=== PATIENT | male | born 1930 | race Caucasian/White ===

== ENCOUNTER 2016-10-26 03:07 | Inpatient (IN) | payer MEDICARE, OTHER ==
--- NOTE | 2016-10-26 03:18 | PDOC ---
History of Present Illness - General Stated Complaint: DIZZINESS, SOB Time Seen by Provider: 10/26/16 03:17 History Source: Patient Exam Limitations: No Limitations - History of Present Illness Timing/Duration: reports: other (4 months) Possible Cause: Yes: no prior episodes Past History - Travel Traveled outside of the country in the last 30 days: No Close contact w/someone who was outside of country & ill: No - Past Medical History Allergies/Adverse Reactions: Allergies Allergy/AdvReac Type Severity Reaction Status Date / Time No Known Allergies Allergy Verified 10/26/16 03:18 Home Medications: Ambulatory Orders Apixaban [Eliquis -] 5 mg PO BID #40 tablet 05/22/16 Atorvastatin Ca [Lipitor] 40 mg PO HS #30 tablet 05/22/16 Albuterol 0.083% Nebulizer Hamida [Ventolin 0.083%] 1 neb NEB QID 10/26/16 Albuterol Sulfate [Proair Respiclick] 90 mcg IH ASDIR 10/26/16 Brimonidine Tartrate/Timolol [Combigan Eye Drops] 5 ml OP ASDIR 10/26/16 Montelukast Na [Singulair -] 10 mg PO HS 10/26/16 Pantoprazole Sodium [Protonix -] 40 mg PO DAILY 10/26/16 GI Disorders: Yes (gerd) Suicide Attempt (Hx): No - Psycho/Social/Smoking Cessation Hx Anxiety: No Suicidal Ideation: No Smoking History: Unknown if ever smoked Have you smoked in the past 12 months: No Hx Alcohol Use: No Drug/Substance Use Hx: No Substance Use Type: None Respiratory Specific PMHX - Complaint Specific PMHX Bronchitis: No Pneumonia: No Review of Systems - Review of Systems Able to Perform ROS?: Yes Comments:: 10/26/16 04:38 CONSTITUTIONAL: subjective; fever Absent: chills, diaphoresis, generalized weakness, malaise, loss of appetite HEENT: Absent: rhinorrhea, nasal congestion, throat pain, throat swelling, difficulty swallowing, mouth swelling, ear pain, eye pain, visual Changes CARDIOVASCULAR: Absent: chest pain, loss of consciousness, palpitations, irregular heart rate, peripheral edema RESPIRATORY: +cough Absent: shortness of breath, dyspnea with exertion, orthopnea, wheezing, stridor , hemoptysis GASTROINTESTINAL: Absent: abdominal pain, abdominal distension, nausea, vomiting, diarrhea, constipation, melena, hematochezia GENITOURINARY: Absent: dysuria, frequency, urgency, hesitancy, hematuria, flank pain, genital pain MUSCULOSKELETAL: Absent: myalgia, arthralgia, joint swelling SKIN: Absent: rash, itching, pallor HEMATOLOGIC/IMMUNOLOGIC: Absent: easy bleeding, easy bruising, lymphadenopathy, frequent infections ENDOCRINE: Absent: unexplained weight gain, unexplained weight loss, heat intolerance, cold intolerance NEUROLOGIC: Absent: headache, focal weakness or paresthesias, dizziness, unsteady gait, seizure, mental status changes, bladder or bowel incontinence PSYCHIATRIC: Absent: anxiety, depression, suicidal or homicidal ideation, hallucinations. Is the patient limited Beninese proficient: No *Physical Exam - Physical Exam Comments: 10/26/16 04:38 GENERAL: Well developed, well nourished. Awake and alert. No acute distress. HEENT: Normocephalic, atraumatic. PERRLA, EOMI. No conjunctival pallor. Sclera are non- icteric. Moist mucous membranes. Oropharynx is clear. NECK: Supple. Full ROM. No JVD. Carotid pulses 2+ and symmetric, without bruits. No thyromegaly. No lymphadenopathy. CARDIOVASCULAR: Regular rate and rhythm. No murmurs, rubs, or gallops. Distal pulses are 2+ and symmetric. PULMONARY: RLL>LLL basil rhonchi No evidence of respiratory distress. No wheezing, rales ABDOMINAL: Soft. Non-tender. Non-distended. No rebound or guarding. No organomegaly. Normoactive bowel sounds. MUSCULOSKELETAL Normal range of motion at all joints. No bony deformities or tenderness. No CVA tenderness. EXTREMITIES: No cyanosis. No clubbing. No edema. No calf tenderness. SKIN: Warm and dry. Normal capillary refill. No rashes. No jaundice. NEUROLOGICAL: Alert, awake, appropriate. Cranial nerves 2-12 intact. No deficits to light touch and temperature in face, upper extremities and lower extremities. No motor deficits in the in face, upper extremities and lower extremities. Normoreflexic in the upper and lower extremities. Normal speech. Toes are down- going bilaterally. Gait is normal without ataxia. PSYCHIATRIC: Cooperative. Good eye contact. Appropriate mood and affect. 10/26/16 05:21 ED Treatment Course - LABORATORY CBC & Chemistry Diagram: 10/26/16 03:30 10/26/16 03:30 - RADIOLOGY Radiograph Interpretation: 10/26/16 05:08 Mild nonspecific bilateral basilar pneumonia or chronic atypical pneumonia and lung scarring Progress Note - Progress Note Progress Note: 86-year-old male presents to the emergency department with his family complaining of subjective fever and cough 4 months. Patient states he feels shortness of breath after persisting coughing. Patient denies any dizziness, lightheadedness, headaches, nausea, vomiting, chest pain, abdominal pains, urinary symptoms or extremity numbness or tingling sensation. 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
--- NOTE | 2016-10-26 03:37 | PDOC ---
*Physical Exam - Vital Signs Last Vital Signs Temp Pulse Resp BP Pulse Ox 101 F H 107 H 28 H 130/70 10/26/16 03:20 10/26/16 03:20 10/26/16 03:20 10/26/16 03:20 ED Treatment Course - LABORATORY CBC & Chemistry Diagram: 10/26/16 03:30 10/26/16 03:30 Medical Decision Making - Medical Decision Making 10/26/16 03:36 agree with care from SAM Moya. Pt h/o fever for several weeks. Pt pending cxray and flu swab *DC/Admit/Observation/Transfer Diagnosis at time of Disposition: Pneumonia - Discharge Dispostion Condition at time of disposition: Stable
[2016-10-26] MEDS ORDERED: ACETAMINOPHEN 325 MG TABLET (FP) ONE (03:52)
[2016-10-26 04:15] LABS: BASOPHIL 0.3 % (0-2.0); MCH 29.8 pg (25.7-33.7); MCHC 33.6 g/dl (32.0-35.9); MEAN CELL VOLUME 88.6 fl (80-96); NEUTROPHILS 72.6 % (42.8-82.8); PLATELET COUNT 238 K/MM3 (134-434); RDW 14.3 % (11.9-15.9); WHITE BLOOD COUNT 14.3 K/mm3 (4.0-10.0)
[2016-10-26 04:30] LABS: URINE APPEARANCE CLEAR; URINE BILIRUBIN NEGATIVE (NEGATIVE); URINE BLOOD NEGATIVE (NEGATIVE); URINE COLOR LTYELLOW; URINE GLUCOSE (UA) NEGATIVE (NEGATIVE); URINE KETONE NEGATIVE (NEGATIVE); URINE LEUK ESTERASE NEGATIVE (NEGATIVE); URINE NITRITE NEGATIVE (NEGATIVE); URINE UROBILINOGEN NEGATIVE E.U./dl (0.2-1.0)
[2016-10-26 04:34] LABS: URINE PROTEIN 1+ (NEGATIVE)
[2016-10-26 04:35] LABS: URINE BACTERIA RARE /hpf (NONE SEEN); URINE RBC <1 /hpf (0-3); URINE WBC <1 /hpf (3-5)
[2016-10-26 04:41] LABS: ALBUMIN 3.3 g/dl (3.4-5.0); ANION GAP 10 (8-16); CALCIUM 8.8 mg/dL (8.5-10.1); CO2 28 mmol/L (21-32); CREATININE 0.9 mg/dL (0.7-1.3); GLUCOSE,RANDOM 150 mg/dL (74-106); SGOT/AST 20 U/L (15-37); SGPT/ALT 34 U/L (12-78); TOT PROT 6.8 g/dl (6.4-8.2)
[2016-10-26 04:42] LABS: ALK PHOS 159 U/L (45-117)
[2016-10-26 04:44] LABS: TROPONIN I 0.02 ng/ml (0.00-0.05)
[2016-10-26] MEDS ORDERED: CEFTRIAXONE 1 GM in DEXTROSE 5%-WATER - 50 ML IVPB ONE (04:53)
[2016-10-26] MEDS ORDERED: AZITHROMYCIN IVPB 500 MG in DEXTROSE 5%-WATER - 250 ML IVPB ONE (04:53)
[2016-10-26] MEDS ORDERED: ACETAMINOPHEN 325 MG TABLET (FP) PO PRN (05:25)
--- NOTE | 2016-10-26 05:32 | HP ---
CHIEF COMPLAINT: Cough, SOB, Dizziness PCP: Dr. Malena Collins HISTORY OF PRESENT ILLNESS: This is a 86 y/o male with a past medical history of Afib (on Eliquis), Hypertension. Who presents to the emergency department with family for cough, SOB x 4 months, subjective fever, dizziness, chest pain. Patient's Son reports patient has had a productive cough with white phlegm, seeing his PMD Rx- Albuterol Neb, Pro Air without relief. His son reports the cough is worse at night. The son reports the patient being dizzy and having chest pain worse after coughing. Per the patient's son patient denies AP, N/V/D, constipation, dysuria ER course was notable for: (1) Sepsis Criteria Met IV: T Max 101, P 104, R 28, WBC 48942 (2) SIRS Criteria Met secondary to CAP (3) Chest Xray- Bibasilar PNA- started on Azithromycin, Ceftriaxone Recent Travel: None PAST MEDICAL HISTORY: See HPI PAST SURGICAL HISTORY: None Social History: Smoking: Never Alcohol: None Drugs: None Lives with family Family History: Non-Contributory Allergies No Known Allergies Allergy (Verified 10/26/16 03:18) HOME MEDICATIONS: Home Medications Medication Instructions Recorded Apixaban [Eliquis -] 5 mg PO BID #40 tablet 05/22/16 Atorvastatin Ca [Lipitor] 40 mg PO HS #30 tablet 05/22/16 Albuterol 0.083% Nebulizer Hamida 1 neb NEB QID 10/26/16 [Ventolin 0.083%] Albuterol Sulfate [Proair 90 mcg IH ASDIR 10/26/16 Respiclick] Brimonidine Tartrate/Timolol 5 ml OP ASDIR 10/26/16 [Combigan Eye Drops] Montelukast Na [Singulair -] 10 mg PO HS 10/26/16 Pantoprazole Sodium [Protonix -] 40 mg PO DAILY 10/26/16 REVIEW OF SYSTEMS CONSTITUTIONAL: fever, chills Absent: diaphoresis, generalized weakness, malaise, loss of appetite, weight change HEENT: Absent: rhinorrhea, nasal congestion, throat pain, throat swelling, difficulty swallowing, mouth swelling, ear pain, eye pain, visual changes CARDIOVASCULAR: chest pain, Absent: syncope, palpitations, irregular heart rate, lightheadedness, peripheral edema RESPIRATORY: cough, shortness of breath, dyspnea with exertion Absent: orthopnea, wheezing, stridor, hemoptysis GASTROINTESTINAL: Absent: abdominal pain, abdominal distension, nausea, vomiting, diarrhea, constipation, melena, hematochezia GENITOURINARY: Absent: dysuria, frequency, urgency, hesitancy, hematuria, flank pain, genital pain MUSCULOSKELETAL: Absent: myalgia, arthralgia, joint swelling, back pain, neck pain SKIN: Absent: rash, itching, pallor HEMATOLOGIC/IMMUNOLOGIC: Absent: easy bleeding, easy bruising, lymphadenopathy, frequent infections ENDOCRINE: Absent: unexplained weight gain, unexplained weight loss, heat intolerance, cold intolerance NEUROLOGIC: dizziness Absent: headache, focal weakness or paresthesias, unsteady gait, seizure, mental status changes, bladder or bowel incontinence PSYCHIATRIC: Absent: anxiety, depression, suicidal or homicidal ideation, hallucinations. PHYSICAL EXAMINATION Vital Signs - 24 hr 10/26/16 03:20 Temperature 101 F H Pulse Rate 107 H Respiratory 28 H Rate Blood Pressure 130/70 GENERAL: Awake, alert, and fully oriented, in mild resp distress. HEAD: Normal with no signs of trauma. EYES: Pupils equal, round and reactive to light, extraocular movements intact, sclera anicteric, conjunctiva clear. No lid lag. EARS, NOSE, THROAT: Ears normal, nares patent, oropharynx clear without exudates. Dry mucous membranes. NECK: Normal range of motion, supple without lymphadenopathy, JVD, or masses. LUNGS:Bilateral scattered coarse Rhonchi and wheeze throughout. Diminished to bases. No accessory muscle use. HEART:Irregular rate and rhythm, normal S1 and S2 without murmur, rub or gallop. ABDOMEN: Soft, nontender, not distended, normoactive bowel sounds, no guarding, no rebound, no masses. No hepatomegaly or splenomegaly. MUSCULOSKELETAL: Normal range of motion at all joints. No bony deformities or tenderness. No CVA tenderness. UPPER EXTREMITIES: 2+ pulses, warm, well-perfused. No cyanosis. No clubbing. Cap refill <2 seconds. No peripheral edema. LOWER EXTREMITIES: 2+ pulses, warm, well-perfused. No calf tenderness. No peripheral edema. NEUROLOGICAL: Cranial nerves II-XII intact. Normal speech. Gait not observed. PSYCHIATRIC: Cooperative. Good eye contact. Appropriate mood and affect. SKIN: Warm, dry, normal turgor, no rashes or lesions noted. Laboratory Results - last 24 hr 10/26/16 10/26/16 10/26/16 03:30 03:30 03:30 WBC 14.3 H D RBC 4.73 Hgb 14.1 Hct 41.9 MCV 88.6 MCHC 33.6 RDW 14.3 Plt Count 238 MPV 8.0 Neutrophils % 72.6 Lymphocytes % 15.5 D Monocytes % 10.6 H Eosinophils % 1.0 D Basophils % 0.3 Sodium 134 L Potassium 4.1 Chloride 96 L Carbon Dioxide 28 Anion Gap 10 BUN 16 Creatinine 0.9 Creat Clearance w eGFR > 60 Random Glucose 150 H Lactic Acid Calcium 8.8 Total Bilirubin 1.0 D AST 20 D ALT 34 Alkaline Phosphatase 159 H D Creatine Kinase Troponin I Total Protein 6.8 Albumin 3.3 L Urine Color Ltyellow Urine Appearance Clear Urine pH 7.0 Ur Specific [place] 1.012 Urine Protein 1+ H Urine Glucose (UA) Negative Urine Ketones Negative Urine Blood Negative Urine Nitrite Negative Urine Bilirubin Negative Urine Urobilinogen Negative Ur Leukocyte Esterase Negative Urine RBC <1 Urine WBC <1 Urine Bacteria Rare 10/26/16 10/26/16 03:30 03:30 WBC RBC Hgb Hct MCV MCHC RDW Plt Count MPV Neutrophils % Lymphocytes % Monocytes % Eosinophils % Basophils % Sodium Potassium Chloride Carbon Dioxide Anion Gap BUN Creatinine Creat Clearance w eGFR Random Glucose Lactic Acid 1.119 Calcium Total Bilirubin AST ALT Alkaline Phosphatase Creatine Kinase 80 Troponin I 0.02 Total Protein Albumin Urine Color Urine Appearance Urine pH Ur Specific [place] Urine Protein Urine Glucose (UA) Urine Ketones Urine Blood Urine Nitrite Urine Bilirubin Urine Urobilinogen Ur Leukocyte Esterase Urine RBC Urine WBC Urine Bacteria RADIOLOGY Radiograph Interpretation: 10/26/16 05:08 Mild nonspecific bilateral basilar pneumonia or chronic atypical pneumonia and lung scarring ASSESSMENT/PLAN: This is a 86 y/o male with a PMHx of: Afib (on Eliquis), HTN. Who presents to the ED with SOB, subjective fever, productive cough. Admitted for Community Acquired Pneumonia for further evaluation of their emergent condition. Problems: 1. Community Acquired Pneumonia 2. Sepsis 3. SIRS 3. Afib 3. Hypertension 4. Hyperlipidemia 5. FEN 6. DVT/PPI Prophylaxis Code Status: Full Code Dispo: Requires inpatient care Problem List - Problem (1) CAP (community acquired pneumonia) Assessment/Plan: - CURB65 1 - Chest Xray- Bilateral Pnuemonia - T Max 101 with Leukocytosis - Blood Cultures-pending - Influenza Swab- Negative - Urine Legionella - Sputum Culture - Azithromycin, Ceftriaxone given in ED, will continue - Appreciate ID Consult - Monitor CBC - Tylenol prn - O2 - Duonebs for SOB/Wheeze Code(s): J18.9 - PNEUMONIA, UNSPECIFIED ORGANISM (2) Sepsis Assessment/Plan: - Sepsis Criteria Met: T Max 101, P 104, R 28, WBC 12878 - Likely secondary to CAP - Blood Cultures-pending - Urine Culture, Urine Legionella-pending - Neg- Lactic Acidemia, Influenza - NS 1L Bolus given in ED - Started on Empiric ABX- Azithromycin, Ceftriaxone - Continue Azithromycin, Ceftriaxone pending preliminary blood cultures - Will not treat aggressively with IVF concern for fluid overload, also no indication with the Lactic Acid wnl - Monitor vitals, CBC Code(s): A41.9 - SEPSIS, UNSPECIFIED ORGANISM (3) SIRS (systemic inflammatory response syndrome) Assessment/Plan: - See Above Code(s): R65.10 - SIRS OF NON-INFECTIOUS ORIGIN W/O ACUTE ORGAN DYSFUNCTION (4) Atrial fibrillation Assessment/Plan: - Continue Eliquis Code(s): I48.91 - UNSPECIFIED ATRIAL FIBRILLATION Qualifiers: (5) Dizziness Assessment/Plan: - Likely secondary to excessive cough vs dehydration - NS Bolus given in ED - Monitor Vitals - Ortho Statics Code(s): R42 - DIZZINESS AND GIDDINESS (6) HTN (hypertension) Assessment/Plan: - Monitor BP - Continue home meds with parameters Code(s): I10 - ESSENTIAL (PRIMARY) HYPERTENSION Qualifiers: (7) Hyperlipidemia Assessment/Plan: - Continue home med Code(s): E78.5 - HYPERLIPIDEMIA, UNSPECIFIED (8) DVT prophylaxis Assessment/Plan: - OOB - SCDs - Continue Eliquis Code(s): EJB4639 - Visit type - Emergency Visit Emergency Visit: Yes ED Registration Date: 10/26/16 Care time: The patient presented to the Emergency Department on the above date and was hospitalized for further evaluation of their emergent condition. - New Patient This patient is new to me today: Yes Date on this admission: 10/26/16 - Critical Care Critical Care patient: No
[2016-10-26] MEDS: ALBUTEROL SO4 2.5/IPRATROPIUM 0.5 INH SOL 3 ML VIAL.NEB. NEB SCH ×3 (05:36→18:54)
[2016-10-26] MEDS ORDERED: AZITHROMYCIN IVPB 250 ML IVPB ONE (05:37)
[2016-10-26] MEDS ORDERED: PATIENT'S OWN MEDICATION (NON-FORMULARY) (Brimonidine Tartrate/Timolol [Combigan 0.2%-0.5% OP SCH (06:00)
[2016-10-26] MEDS ORDERED: CEFTRIAXONE 50 ML ONE (06:16)
[2016-10-26] MEDS ORDERED: PANTOPRAZOLE 40 MG TABLET (FP) PO SCH (10:00)
[2016-10-26] MEDS ORDERED: PT OWN MED DRAWER 7, Y5N ONE ×2 (11:03→11:53)
[2016-10-26] MEDS: PANTOPRAZOLE 40 MG TABLET (FP) PO SCH (12:06)
--- NOTE | 2016-10-26 13:56 | EKG ---
Test Reason : Blood Pressure : / mmHG Vent. Rate : 087 BPM Atrial Rate : 416 BPM P-R Int : 000 ms QRS Dur : 078 ms QT Int : 322 ms P-R-T Axes : 000 -24 009 degrees QTc Int : 387 ms ATRIAL FIBRILLATION WITH A COMPETING JUNCTIONAL PACEMAKER ABNORMAL ECG WHEN COMPARED WITH ECG OF 21-MAY-2016 09:11, NO SIGNIFICANT CHANGE WAS FOUND Confirmed by BRAYDEN BULLARD MD ([id number]) on 10/26/2016 1:55:50 PM Referred By: Confirmed By:BRAYDEN BULLARD MD
[2016-10-26] MEDS: APIXABAN 5 MG TABLET PO SCH ×2 (14:28→22:00)
[2016-10-26] MEDS: guaiFENesin/D-M SUGAR-FREE/ACLHOL-FREE 118 ML BOTTLE PO PRN (18:11)
[2016-10-26] MEDS: ATORVASTATIN CA 40 MG TABLET (FP) PO SCH (22:00)
[2016-10-26] MEDS: MONTELUKAST NA 10 MG TABLET PO SCH (22:00)
[2016-10-27] MEDS: ALBUTEROL SO4 2.5/IPRATROPIUM 0.5 INH SOL 3 ML VIAL.NEB. NEB SCH ×5 (00:05→23:10)
[2016-10-27 07:30] LABS: BASOPHIL 0.3 % (0-2.0); EOSINOPHIL 3.2 % (0-4.5); MCH 29.5 pg (25.7-33.7); MCHC 33.2 g/dl (32.0-35.9); MEAN CELL VOLUME 88.8 fl (80-96); MEAN PLT VOLUME 8.3 fl (7.5-11.1); NEUTROPHILS 67.6 % (42.8-82.8); PLATELET COUNT 232 K/MM3 (134-434); RDW 14.6 % (11.9-15.9); WHITE BLOOD COUNT 11.4 K/mm3 (4.0-10.0)
[2016-10-27 08:02] LABS: CALCIUM 8.6 mg/dL (8.5-10.1); CREATININE 0.7 mg/dL (0.7-1.3)
--- NOTE | 2016-10-27 09:24 | PN ---
Physical Exam: SUBJECTIVE: Patient seen and examined. Complaining of subjective fevers/chills/ sweats overnight. Senses some improvement in breathing, but is still having frequent cough productive of white sputum. Has unusual fatigue. Still feeling dizzy when standing. OBJECTIVE: Vital Signs Period Temp Pulse Resp BP Sys/Hebert Pulse Ox Last 24 Hr 98.1 F-99.6 F 69-98 20-20 113-138/60-86 95-96 GENERAL: The patient is awake, alert, and fully oriented, in no acute distress. Out of bed to chair. HEAD: Normal with no signs of trauma. EYES: PERRL, extraocular movements intact, sclera anicteric, conjunctiva clear. No ptosis. ENT: Ears normal, nares patent, oropharynx clear without exudates, moist mucous membranes. NECK: Trachea midline, full range of motion, supple. LUNGS: Ronchi right base, scattered wheezes. Good air entry bilaterally. No tachypnea or use of accessory muscles. HEART: Regular rate and rhythm, S1, S2 without murmur, rub or gallop. ABDOMEN: Soft, nontender, nondistended, normoactive bowel sounds, no guarding, no rebound, no hepatosplenomegaly, no masses. EXTREMITIES: 2+ pulses, warm, well-perfused, no edema. NEUROLOGICAL: Cranial nerves II through XII grossly intact. Normal speech, gait not observed. PSYCH: Normal mood, normal affect. SKIN: Warm, dry, normal turgor, no rashes or lesions noted Laboratory Results - last 24 hr 10/27/16 10/27/16 06:00 06:00 WBC 11.4 H RBC 4.77 Hgb 14.0 Hct 42.4 MCV 88.8 MCHC 33.2 RDW 14.6 Plt Count 232 MPV 8.3 Neutrophils % 67.6 Lymphocytes % 20.3 D Monocytes % 8.6 Eosinophils % 3.2 D Basophils % 0.3 Sodium 139 Potassium 4.2 Chloride 101 Carbon Dioxide 26 Anion Gap 12 BUN 16 Creatinine 0.7 D Random Glucose 122 H Calcium 8.6 Active Medications Generic Name Dose Route Start Last Admin Trade Name Freq PRN Reason Stop Dose Admin Acetaminophen 650 mg 10/26/16 05:25 10/26/16 21:59 Tylenol - PO 650 mg Q6H PRN Administration FEVER OR PAIN Albuterol/Ipratropium 1 amp 10/26/16 06:00 10/27/16 06:18 Duoneb - NEB 1 amp QIDR URI Administration Apixaban 5 mg 10/26/16 10:00 10/26/16 22:00 Eliquis - PO 5 mg BID URI Administration Atorvastatin Calcium 40 mg 10/26/16 22:00 10/26/16 22:00 Lipitor - PO 40 mg HS URI Administration Azithromycin 500 mg 10/27/16 10:00 Zithromax 500mg Ivpb (Pre-Docked) IVPB DAILY URI Ceftriaxone Sodium 1 gm 10/27/16 10:00 Rocephin 1gm Ivpb (Pre-Docked) IVPB DAILY URI Guaifenesin 10 ml 10/26/16 15:29 10/26/16 18:11 Diabetic Tussin Dm - PO 10 ml Q4H PRN Administration COUGH Montelukast Sodium 10 mg 10/26/16 22:00 10/26/16 22:00 Singulair - PO 10 mg HS URI Administration Non-Formulary Medication 5 ml 10/26/16 06:00 Brimonidine Tartrate/Timolol [Combigan 0.2%-0.5% Eye Drops] OP ASDIR URI Pantoprazole Sodium 40 mg 10/26/16 11:15 10/26/16 12:06 Protonix - PO 40 mg DAILY URI Administration ASSESSMENT/PLAN: ASSESSMENT/PLAN: 86 year old male with a history of Afib (on Eliquis) and HTN admitted for sepsis secondary to presumed CAP. 1. CAP -Clinical history is consistent with CAP, however there is no clear infiltrate on CXR -Will obtain CT chest without contrast -Continue Ceftriaxone/Azithromycin; patient seems to be improving on this -Follow up blood cultures, urine antigens -Flu negative -Follow fever/WBC curve -Continue DuoNebs for wheezing, add Solu-Medrol -Pulmonary consultation 2. Sepsis -Resolving -Continue abx as above -Follow up blood cultures 3. Atrial fibrillation -Rate-controlled -Continue Eliquis 4. Ppx -Eliquis DISPO: Continue inpatient care pending improvement in respiratory status. Visit type - Emergency Visit Emergency Visit: Yes ED Registration Date: 10/26/16 Care time: The patient presented to the Emergency Department on the above date and was hospitalized for further evaluation of their emergent condition. - New Patient This patient is new to me today: Yes Date on this admission: 10/27/16 - Critical Care Critical Care patient: No
[2016-10-27] MEDS ORDERED: CEFTRIAXONE 1 GM in DEXTROSE 5%-WATER - 100 ML IVPB SCH (10:00)
[2016-10-27] MEDS ORDERED: AZITHROMYCIN IVPB 500 MG in DEXTROSE 5%-WATER - 250 ML IVPB SCH (10:00)
[2016-10-27] MEDS ORDERED: PT OWN MED DRAWER 7, Y5N ONE (10:03)
[2016-10-27] MEDS: APIXABAN 5 MG TABLET PO SCH ×2 (10:50→21:40)
[2016-10-27] MEDS: AZITHROMYCIN IVPB 500 MG/250 ML D5W PRE-DOCKED IVPB SCH (10:56)
[2016-10-27] MEDS: cefTRIAXone 1 GM/50 ML BAG (PRE-DOCKED) IVPB SCH (10:57)
[2016-10-27] MEDS: PANTOPRAZOLE 40 MG TABLET (FP) PO SCH (10:57)
[2016-10-27] MEDS: methylPREDNISolone NA SUCC 40 MG/1 ML VIAL IVPB SCH (12:40)
--- NOTE | 2016-10-27 16:35 | CON.PULM ---
Consult Consult Specialty:: PULMONARY Referred by:: MAZIN Mario Reason for Consultation:: pneumonia - History of Present Illness Chief Complaint: shortness of breath, cough History of Present Illness: 86yo male with h/o HTN, hyperlipidemia, atrial fibrillation who presents with worsening cough and generalized malaise. He reports a cough productive of white sputum and chest pain brought on by coughing. +subjective fevers, chills and sweats. No nausea, vomiting or diarrhea. No recent travel or sick contacts. Febrile to 101 upon presentation. He denies prior pneumonia, was hospitalized about 5 months ago with diagnosis of atrial fibrillation, placed on eliquis. Last antibiotics 3 months ago for an ?oral abscess. He did receive his flu vaccine this year. He is a never smoker but was diagnosed with "asthma" 3 months ago, prescribed a ProAir MDI which he does not need to use. 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 - History Source History Provided By: Patient, Family Member, Medical Record Limitations to Obtaining History: Language Barrier - Past Medical History [employer]: Yes: Vertigo Cardio/Vascular: Yes: AFIB, HTN, Hyperlipdemia - Past Surgical History Past Surgical History: Yes: None - Alcohol/Substance Use Hx Alcohol Use: No - Smoking History Smoking history: Unknown if ever smoked Have you smoked in the past 12 months: No - Social History Usual Living Arrangement: With Child Home Medications - Allergies Allergies/Adverse Reactions: Allergies Allergy/AdvReac Type Severity Reaction Status Date / Time No Known Allergies Allergy Verified 10/26/16 03:18 - Home Medications Home Medications: Ambulatory Orders Apixaban [Eliquis -] 5 mg PO BID #40 tablet 05/22/16 Atorvastatin Ca [Lipitor] 40 mg PO HS #30 tablet 05/22/16 Albuterol 0.083% Nebulizer Hamida [Ventolin 0.083%] 1 neb NEB QID 10/26/16 Albuterol Sulfate [Proair Respiclick] 90 mcg IH ASDIR 10/26/16 Brimonidine Tartrate/Timolol [Combigan Eye Drops] 5 ml OP ASDIR 10/26/16 Montelukast Na [Singulair -] 10 mg PO HS 10/26/16 Pantoprazole Sodium [Protonix -] 40 mg PO DAILY 10/26/16 Family Disease History - Family Disease History Other Family History: non-contributory Review of Systems - Review of Systems Constitutional: reports: Chills, Fever, Malaise, Night Sweats, Weakness Eyes: denies: Recent Change in Vision HENT: denies: Nasal Congestion, Throat Pain Neck: denies: Stiffness, Tenderness Cardiovascular: reports: Chest Pain, Shortness of Breath. denies: Edema, Palpitations Respiratory: reports: Cough, SOB. denies: Hemoptysis, Wheezing Gastrointestinal: denies: Abdominal Pain, Diarrhea, Nausea, Vomiting Genitourinary: denies: Dysuria, Hematuria Neurological: reports: Dizziness. denies: Headache Endocrine: denies: Unexplained Weight Gain, Unexplained Weight Loss Physical Exam Vital Sings: Vital Signs Temperature 98.5 F 10/27/16 14:00 Pulse Rate 79 10/27/16 14:00 Respiratory Rate 20 10/27/16 14:00 Blood Pressure 125/68 10/27/16 14:00 O2 Sat by Pulse Oximetry (%) 94 L 10/27/16 09:00 Constitutional: Yes: Calm Eyes: Yes: Conjunctiva Clear, EOM Intact HENT: Yes: Atraumatic, Normocephalic Neck: Yes: Supple, Trachea Midline Cardiovascular: Yes: Regular Rate and Rhythm Respiratory: Yes: Regular, Rhonchi (rare) ...Clubbing: No Gastrointestinal: Yes: Normal Bowel Sounds, Soft, Abdomen, Obese. No: Tenderness Edema: No Neurological: Yes: Alert, Oriented Labs: CBC, BMP 10/27/16 06:00 10/27/16 06:00 Imaging - Results Cat Scan: Report Reviewed, Image Reviewed (bilateral infiltrates) Problem List - Problems (1) CAP (community acquired pneumonia) Code(s): J18.9 - PNEUMONIA, UNSPECIFIED ORGANISM (2) Sepsis Code(s): A41.9 - SEPSIS, UNSPECIFIED ORGANISM (3) Atrial fibrillation Code(s): I48.91 - UNSPECIFIED ATRIAL FIBRILLATION Qualifiers: (4) HTN (hypertension) Code(s): I10 - ESSENTIAL (PRIMARY) HYPERTENSION Qualifiers: (5) Hyperlipidemia Code(s): E78.5 - HYPERLIPIDEMIA, UNSPECIFIED Assessment/Plan Pneumonia Sepsis Atrial Fibrillation HTN Hyperlipidemia - agree with antibiotic coverage of ceftriaxone/azithromycin - f/u cultures - O2 as needed - on empiric steroids, can likely d/c in AM - inhaled bronchodilators as needed - rate controlled - continue anticoagulation - monitor fever curve, WBC trend - when afebrile and WBC normalizes, can change antibiotics to PO and likely d/ c home - outpt PFTs to evaluate recent diagnosis of "asthma" Thank you for this consult Gian Holliday MD
[2016-10-27] MEDS: ATORVASTATIN CA 40 MG TABLET (FP) PO SCH (21:40)
[2016-10-27] MEDS: MONTELUKAST NA 10 MG TABLET PO SCH (21:40)
[2016-10-28] MEDS: ALBUTEROL SO4 2.5/IPRATROPIUM 0.5 INH SOL 3 ML VIAL.NEB. NEB SCH ×2 (06:33→11:28)
[2016-10-28 07:29] LABS: BASOPHIL 0.1 % (0-2.0); EOSINOPHIL 0.1 % (0-4.5); MCH 29.8 pg (25.7-33.7); MEAN CELL VOLUME 87.7 fl (80-96); MEAN PLT VOLUME 8.5 fl (7.5-11.1); NEUTROPHILS 88.4 % (42.8-82.8); PLATELET COUNT 254 K/MM3 (134-434); RDW 14.2 % (11.9-15.9); WHITE BLOOD COUNT 13.7 K/mm3 (4.0-10.0)
[2016-10-28 07:54] LABS: ALBUMIN 3.1 g/dl (3.4-5.0); ANION GAP 13 (8-16); CO2 22 mmol/L (21-32); GLUCOSE,RANDOM 167 mg/dL (74-106)
[2016-10-28 07:59] LABS: ALK PHOS 159 U/L (45-117); BILIRUBIN,TOTAL 0.5 mg/dL (0.2-1.0); CALCIUM 9.2 mg/dL (8.5-10.1); CREATININE 0.8 mg/dL (0.7-1.3); SGOT/AST 20 U/L (15-37); SGPT/ALT 31 U/L (12-78); TOT PROT 7.1 g/dl (6.4-8.2)
[2016-10-28 09:34] VITALS: BP 140/83; PULSE 76; TEMP 97.9
--- NOTE | 2016-10-28 09:55 | DS ---
Physical Exam: SUBJECTIVE: Patient seen and examined OBJECTIVE: Vital Signs Period Temp Pulse Resp BP Sys/Hebert Pulse Ox Last 24 Hr 97.6 F-98.8 F 75-90 18-20 125-156/68-83 95-95 PHYSICAL EXAM GENERAL: The patient is awake, alert, and fully oriented, in no acute distress. HEAD: Normal with no signs of trauma. EYES: PERRL, extraocular movements intact, sclera anicteric, conjunctiva clear. ENT: Ears normal, nares patent, oropharynx clear without exudates, moist mucous membranes. NECK: Trachea midline, full range of motion, supple. LUNGS: Breath sounds equal, clear to auscultation bilaterally, no wheezes, no crackles, no accessory muscle use. HEART: Regular rate and rhythm, S1, S2 without murmur, rub or gallop. ABDOMEN: Soft, nontender, nondistended, normoactive bowel sounds, no guarding, no rebound, no hepatosplenomegaly, no masses. EXTREMITIES: 2+ pulses, warm, well-perfused, no edema. NEUROLOGICAL: Cranial nerves II through XII grossly intact. Normal speech, gait not observed. PSYCH: Normal mood, normal affect. SKIN: Warm, dry, normal turgor, no rashes or lesions noted. LABS Laboratory Results - last 24 hr 10/28/16 10/28/16 07:16 07:16 WBC 13.7 H RBC 4.79 Hgb 14.3 Hct 42.1 MCV 87.7 MCHC 34.0 RDW 14.2 Plt Count 254 MPV 8.5 Neutrophils % 88.4 H D Lymphocytes % 8.4 D Monocytes % 3.0 L Eosinophils % 0.1 D Basophils % 0.1 Sodium 134 L Potassium 4.5 Chloride 99 Carbon Dioxide 22 Anion Gap 13 BUN 19 H Creatinine 0.8 Creat Clearance w eGFR > 60 Random Glucose 167 H D Calcium 9.2 Total Bilirubin 0.5 D AST 20 ALT 31 Alkaline Phosphatase 159 H Total Protein 7.1 Albumin 3.1 L HOSPITAL COURSE: This is an 86 year old male with a history of Afib (on Eliquis) and HTN admitted on 10/26 with sepsis (T101, P 104, R 28, WBC 14K) presumed secondary to CAP. -CXR: No acute process -Chest CT: Bilateral parynchemal PNA -Influenza negative -Blood and urine cultures: no growth to date -No fever since 10/26 3:20am -Treated with Ceftriaxone/Azithromycin with improvement in clinical symptoms -DuoNebs and Solu-Medrol given for wheezing with improvement -Pulmonary consultation obtained -Anticoagulation continued for Afib Plan: Discharge home on Levaquin, albuterol MDI, anti-tussive. Pulmonary and primary care followup advised. Return precautions reviewed. Date of Admission:10/26/16 Date of Discharge: 10/28/16 Minutes to complete discharge: 35 Discharge Summary Reason For Visit: PNEUMONIA Current Active Problems CAP (community acquired pneumonia) (Acute) Pneumonia (Acute) Condition: Stable - Instructions Diet, Activity, Other Instructions: -You are being treated for pneumonia. -Take Levaquin (an antibiotic) and cough syrup as prescribed. Use your albuterol inhaler if needed. Use albuterol nebulizers if the inhaler is not helping you. -Continue all of your other prescribed medications. -Follow up with Dr. Chacko on 11/04 as scheduled OR one of our primary care doctors (two options enclosed), and call to make an appointment with the insurance marketing rep (referral enclosed). -Return here for difficulty breathing or any other concerning symptoms. Referrals: Tab Kate MD [Staff Physician] - (Office Correspondent) Wander Louis MD [Staff Physician] - 1 Week (Primary care) Julian Salgado MD [Staff Physician] - 1 Week (Primary care) Malena Chacko [Primary Care Provider] - Disposition: HOME - Home Medications Comprehensive Discharge Medication List: Ambulatory Orders Apixaban [Eliquis -] 5 mg PO BID #40 tablet 05/22/16 Atorvastatin Ca [Lipitor] 40 mg PO HS #30 tablet 05/22/16 Albuterol 0.083% Nebulizer Hamida [Ventolin 0.083%] 1 neb NEB QID 10/26/16 Albuterol Sulfate [Proair Respiclick] 90 mcg IH ASDIR 10/26/16 Brimonidine Tartrate/Timolol [Combigan Eye Drops] 5 ml OP ASDIR 10/26/16 Montelukast Na [Singulair -] 10 mg PO HS 10/26/16 Pantoprazole Sodium [Protonix -] 40 mg PO DAILY 10/26/16 Levofloxacin [Levaquin] 750 mg PO DAILY #7 tablet 10/28/16 Promethazine/Phenyleph/Codeine [Promethazine Vc-Codeine Syrup] 5 ml PO Q6H PRN # 120 ml MDD 20 mls 10/28/16 This patient is new to me today: No Emergency Visit: Yes ED Registration Date: 10/26/16 Care time: The patient presented to the Emergency Department on the above date and was hospitalized for further evaluation of their emergent condition. Critical Care patient: No - Discharge Referral Referred to [facility] Yes Physician Referral: Wander Armstrong MD ([facility])
[2016-10-28] MEDS ORDERED: PT OWN MED DRAWER 7, Y5N ONE (10:20)
[2016-10-28] MEDS: APIXABAN 5 MG TABLET PO SCH (10:28)
[2016-10-28] MEDS: PANTOPRAZOLE 40 MG TABLET (FP) PO SCH (10:28)
[2016-10-28] MEDS: methylPREDNISolone NA SUCC 40 MG/1 ML VIAL IVPB SCH (10:30)
[2016-10-28] MEDS: AZITHROMYCIN IVPB 500 MG/250 ML D5W PRE-DOCKED IVPB SCH (10:30)
[2016-10-28] MEDS: cefTRIAXone 1 GM/50 ML BAG (PRE-DOCKED) IVPB SCH (10:30)
[2016-10-28] MEDS: guaiFENesin/D-M SUGAR-FREE/ACLHOL-FREE 118 ML BOTTLE PO PRN (11:39)
== END 2016-10-28 13:31 | disposition home or self-care (01) | DRG 871 ==
LOC: JER 03:07 → JERBED 05:09 → J7W 08:38
PROVIDERS: ADMIT Internal Medicine; ATTEND Registered Nurse Emergency
DX: A41.9 Sepsis, unspecified organism (principal); J18.9 Pneumonia, unspecified organism; I48.91 Unspecified atrial fibrillation; I10 Essential (primary) hypertension; E86.0 Dehydration; E78.5 Hyperlipidemia, unspecified
CPT/HCPCS: 36415; 71020-TC; 71250-TC; 80048; 80053; 81003; 81015; 82550; 83605; 84484; 85025; 87040; 87086; 87254; 87804; 87899; 93005; 93010; 94640; 99283-25

== ENCOUNTER 2019-08-21 15:28 | Emergency (ER) | payer OTHER ==
[2019-08-21 15:43] VITALS: BMI 32.9
--- NOTE | 2019-08-21 15:51 | PDOC ---
History of Present Illness - General Chief Complaint: Diarrhea Stated Complaint: ABD PAIN Time Seen by Provider: 08/21/19 15:51 - History of Present Illness Initial Comments: HPI: 88-year-old male with past medical history of atrial fibrillation (on Eliquis), hypertension, hyperlipidemia coming in today for evaluation of urinary symptoms x five days. Patient states that he has only been able to urinate small amounts and the last time he urinated was 2:30pm today. Also has dysuria, urgency, frequency, and a sensation that he cannot empty his bladder all the patient. Patient also reports diarrhea and abdominal pain when these urinary symptoms started but the diarrhea and abdominal self-pain resolved on Monday. He also complains of rectal pain since the diarrhea started. Has taken tylenol which controls the rectal pain. Has had a cough x two or three years. Never seen a urologist before. Denies fevers or chills. PCP: Dr. Chacko ROS: Constitutional: no fever, no chills HEENT: no throat pain, no dysphagia Cardiovascular: no chest pain, no palpitations Respiratory: no cough, no shortness of breath Gastrointestinal: no abdominal pain, no nausea Genitourinary: +dysuria, +hesitancy Musculoskeletal: no myalgia, no arthralgia Skin: no rash, no itching Neurologic: no headache, no weakness PE: General: Awake, alert, and fully oriented, in no acute distress Head: No signs of trauma Eyes: EOMI, sclera anicteric ENT: Moist mucus membranes Neck: Normal ROM, supple Lungs: Faint crackles presnet at the bases Cardio: Regular rhythm, S1 and S2 present Abdomen: Soft, nontender. No guarding, no rebound, no masses. No CVA tenderness. Extremities: Normal range of motion, Distal pulses present SKIN: Warm, Dry, normal turgor Neurologic: Cranial nerves II through XII grossly intact. Normal speech Rectal: The surroudning skin is with mild erythema consistent with minor skin breakdown and irritation. No fissures, skin tags, warts, or discharge. Sphincter tone normal. There are no masses palpated on digital exam. The prostate is firm, non-tender, without nodules. ED Course/MDM: DDX including but not limited to UTI, PNA, fever of unknown origin, prostatitis Upon rectal temp, patient found to be febrile 101.7 Tylenol ordered Will also obtain CXR to assess for other infectious sources I have a high suspicion for UTI given patient's presentation POCUS post void residual performed by Dr. Worley determined that patient had 130cc in bladder 08/21/19 17:05 CBC WBC 11.1 K/mm3 (4.0-10.0) H 08/21/19 16:47 RBC 4.03 M/mm3 (4.00-5.60) 08/21/19 16:47 Hgb 12.2 GM/dL (11.7-16.9) 08/21/19 16:47 Hct 35.8 % (35.4-49) 08/21/19 16:47 MCV 88.8 fl (80-96) 08/21/19 16:47 MCH 30.3 pg (25.7-33.7) 08/21/19 16:47 MCHC 34.1 g/dl (32.0-35.9) 08/21/19 16:47 RDW 14.0 % (11.9-15.9) 08/21/19 16:47 Plt Count 253 K/MM3 (134-434) 08/21/19 16:47 MPV 7.7 fl (7.5-11.1) 08/21/19 16:47 Absolute Neuts (auto) 8.1 K/mm3 (1.5-8.0) H 08/21/19 16:47 Neutrophils % 72.9 % (42.8-82.8) 08/21/19 16:47 Lymphocytes % 15.3 % (8-40) D 08/21/19 16:47 Monocytes % 10.5 % (3.8-10.2) H D 08/21/19 16:47 Eosinophils % 0.8 % (0-4.5) D 08/21/19 16:47 Basophils % 0.5 % (0-2.0) D 08/21/19 16:47 Nucleated RBC % 0 % (0-0) 08/21/19 16:47 Mild leukocytosis CMP Sodium 132 mmol/L (136-145) L 08/21/19 16:47 Potassium 3.9 mmol/L (3.5-5.1) 08/21/19 16:47 Chloride 102 mmol/L (98-107) 08/21/19 16:47 Carbon Dioxide 23 mmol/L (21-32) 08/21/19 16:47 Anion Gap 7 MMOL/L (8-16) L 08/21/19 16:47 BUN 8.2 mg/dL (7-18) 08/21/19 16:47 Creatinine 0.9 mg/dL (0.55-1.3) 08/21/19 16:47 Est GFR (CKD-EPI)AfAm 89.32 08/21/19 16:47 Est GFR (CKD-EPI)NonAf 77.06 08/21/19 16:47 Random Glucose 104 mg/dL (74-106) 08/21/19 16:47 Calcium 8.3 mg/dL (8.5-10.1) L 08/21/19 16:47 Total Bilirubin 0.6 mg/dL (0.2-1) 08/21/19 16:47 AST 28 U/L (15-37) 08/21/19 16:47 ALT 32 U/L (13-61) 08/21/19 16:47 Alkaline Phosphatase 166 U/L (45-117) H 08/21/19 16:47 Total Protein 6.8 g/dl (6.4-8.2) 08/21/19 16:47 Albumin 3.3 g/dl (3.4-5.0) L 08/21/19 16:47 Electrolytes unremarkable UA negative for infection CXR: LLL pneumonia likely, my impression Call to pharmacy, no contraindication to administering levaquin while patient is taking eliquis 08/21/19 17:58 With the assistance of [employer] ammonia technician #[id number], I explained to the patient and his family members that we will treat the pneumonia with levaquin which should also provide some cross coverage with urinary infection. Fever improved here in the ED after receiving tylenol Tylenol q6h for pain/fever Desitin for rectal discomfort To follow up with primary care provider Return precautions Stable for discharge 08/21/19 18:49 Past History - Past Medical History Allergies/Adverse Reactions: Allergies Allergy/AdvReac Type Severity Reaction Status Date / Time No Known Allergies Allergy Verified 08/21/19 18:02 Home Medications: Ambulatory Orders Apixaban [Eliquis -] 5 mg PO BID #40 tablet 05/22/16 Brimonidine Tartrate/Timolol [Combigan 0.2%-0.5% Eye Drops] 5 ml OP ASDIR Montelukast Na [Singulair -] 10 mg PO HS 10/26/16 Pantoprazole Sodium [Protonix -] 40 mg PO DAILY 10/26/16 Atorvastatin Ca [Lipitor] 20 mg PO HS 08/21/19 Brinzolamide [Azopt] 5 ml OP DAILY 08/21/19 Levofloxacin [Levaquin] 750 mg PO DAILY #5 tablet 08/21/19 Lisinopril [Zestril] 2.5 mg PO DAILY 08/21/19 Loratadine 10 mg PO DAILY 08/21/19 Zinc Oxide [Desitin] 1 applic TP TID #1 tube 08/21/19 Anemia: No Asthma: No Cancer: No Cardiac Disorders: Yes CVA: No COPD: No CHF: Yes Dementia: No Diabetes: No GI Disorders: Yes (gerd) Disorders: No HTN: Yes Hypercholesterolemia: Yes Liver Disease: No Seizures: No Thyroid Disease: No - Surgical History Appendectomy: No Cardiac Surgery: No Cholecystectomy: No Lung Surgery: No Neurologic Surgery: No Orthopedic Surgery: No - Immunization History Immunization Up to Date: No - Psycho Social/Smoking Cessation Hx Smoking History: Never smoked Have you smoked in the past 12 months: No Information on smoking cessation initiated: No Hx Alcohol Use: No Drug/Substance Use Hx: No Substance Use Type: None *Physical Exam - Vital Signs Last Vital Signs Temp Pulse Resp BP Pulse Ox 99.9 F H 68 16 133/50 L 98 08/21/19 15:41 08/21/19 15:41 08/21/19 15:41 08/21/19 15:41 08/21/19 15:41 ED Treatment Course - LABORATORY CBC & Chemistry Diagram: 08/21/19 16:47 08/21/19 16:47 Discharge - Discharge Information Problems reviewed: Yes Clinical Impression/Diagnosis: Pneumonia Qualifiers: Pneumonia type: due to unspecified organism Laterality: left Lung location: lower lobe of lung Qualified Code(s): J18.9 - Pneumonia, unspecified organism Condition: Stable Disposition: HOME - Additional Discharge Information Prescriptions: Levofloxacin [Levaquin] 750 mg PO DAILY #5 tablet Zinc Oxide [Desitin] 1 applic TP TID #1 tube - Follow up/Referral - Patient Discharge Instructions Patient Printed Discharge Instructions: DI for Pneumonia -- Adult Additional Instructions: You came into the emergency department for pain when you urinate. Urinalysis did not show a urinary tract infection. The Xray of your chest showed a lung infection. Antibiotics prescription has been sent to your pharmacy. Apply an zxur-koi-ktjgqmq cream called desitin to your rectal area. Prescription for this cream was sent to your pharmacy. You can take dknu-pff-ymzwvja tylenol: two tablets of the 500mg pills (total of 1000mg) no more than every six hours as needed for fever or pain. Follow up with your primary care physician within the next 72 hours to discuss this ED visit and for further evaluation of your symptoms. Your care is not complete until you do so. Call and make an appointment. Immediate medical attention is required if you experience: high fevers, chills, persistent vomiting, stop urinating, chest pain, shortness of breath, or any new or concerning symptoms. If you think you have an emergency, call for medical help right away. Lleg al departamento de emergencias por dolor al orinar. El anlisis de orina no mostr dawson infeccin del tracto urinario. La radiografa de lincoln pecho mostr dawson infeccin pulmonar. Se phillips enviado dawson receta de antibiticos a [place] farmacia. Aplique dawson crema de venta carlos llamada desitina en [place]incoln chani rectal. La receta para esta crema fue enviada a [place] farmacia. Puede sera tylenol de venta carlos: dos tabletas de las pldoras de 500 mg (un total de 1000 mg) no ms de cada seis horas, segn sea necesario para la fiebre o el dolor. Alva un seguimiento con lincoln mdico de atencin primaria dentro de las prximas 72 horas para analizar esta visita al servicio de urgencias y para dawson evaluacin adicional de og sntomas. Lincoln atencin no estar completa hasta que lo alva. Llame y alva dawson shabana. Se requiere atencin mdica inmediata si experimenta fiebre anna, escalofros, vmitos persistentes, keily de orinar, dolor en el pecho, falta de aliento o cualquier sntoma nuevo o preocupante. Si nakia que tiene dawson emergencia, solicite ayuda mdica de inmediato. - Post Discharge Activity
[2019-08-21] MEDS ORDERED: ACETAMINOPHEN 325 MG TABLET (FP) PO ONE (16:51)
[2019-08-21] MEDS ORDERED: ACETAMINOPHEN 325 MG TABLET (FP) ONE (16:57)
[2019-08-21 17:01] LABS: BASO % 0.5 % (0-2.0); EOS % 0.8 % (0-4.5); HEMATOCRIT 35.8 % (35.4-49); HEMOGLOBIN 12.2 GM/dL (11.7-16.9); LYMPH % 15.3 % (8-40); MCH 30.3 pg (25.7-33.7); MCHC 34.1 g/dl (32.0-35.9); MEAN CELL VOLUME 88.8 fl (80-96); MEAN PLT VOLUME 7.7 fl (7.5-11.1); MONO % 10.5 % (3.8-10.2); NEUT % 72.9 % (42.8-82.8); PLATELET COUNT 253 K/MM3 (134-434); RBC 4.03 M/mm3 (4.00-5.60); WHITE BLOOD COUNT 11.1 K/mm3 (4.0-10.0)
--- NOTE | 2019-08-21 17:20 | PDOC ---
Documentation entered by Rema Jerez SCRIBE, acting as scribe for Raleigh Pacheco MD. Raleigh Pacheco MD: This documentation has been prepared by the Solitario mccoy Xhesika, SCRIBE, under my direction and personally reviewed by me in its entirety. I confirm that the documentation accurately reflects all work, treatment, procedures, and medical decision making performed by me. Attending Attestation - Resident Resident Name: Michelle Samaniego - [facility] HPI: 08/21/19 16:29 The patient is an 88 year old male with a PMH of HTN, HLD, Afib who presents to the ED with urinary complaints. The patient reports frequency, urgency, dysuria and poor urine output (last urine output at 2:30pm - minimal output). The patient notes he endorsed diarrhea and abdominal pain, that resolved Monday (). Pt reports chest pain that he relates to his cough, that he has had chronically for the past year. The patient denies shortness of breath, headache and dizziness. Denies fever, chills, cough, nausea, vomiting, diarrhea and constipation.. Allergies:, NKDA Social Hx: Denies current smoking, drinking, or other substance usage
[2019-08-21 17:35] LABS: EPI CELLS 1.7 /HPF (0-5/HPF); HYALINE CASTS 6 /lpf (0-8); URINE APPEARANCE CLEAR; URINE BILIRUBIN NEGATIVE (NEGATIVE); URINE COLOR YELLOW; URINE GLUCOSE (UA) NEGATIVE (NEGATIVE); URINE KETONE NEGATIVE (NEGATIVE); URINE LEUK ESTERASE NEGATIVE (NEGATIVE); URINE NITRITE NEGATIVE (NEGATIVE); URINE PROTEIN 2+ (NEGATIVE); URINE RBC 1 /hpf (0-4); URINE WBC 2 /hpf (0-5)
[2019-08-21 17:50] LABS: ALBUMIN 3.3 g/dl (3.4-5.0); BILIRUBIN,TOTAL 0.6 mg/dL (0.2-1); BLOOD UREA NITROGEN 8.2 mg/dL (7-18); CALCIUM 8.3 mg/dL (8.5-10.1); CREATININE 0.9 mg/dL (0.55-1.3); POTASSIUM 3.9 mmol/L (3.5-5.1); TOT PROT 6.8 g/dl (6.4-8.2)
[2019-08-21] MEDS ORDERED: levoFLOXacin 750 MG TABLET PO ONE (18:06)
[2019-08-21] MEDS ORDERED: COD LIVER OIL/ZINC OXIDE PASTE 56 GM TUBE TP ONE (18:07)
[2019-08-21 18:17] VITALS: BP 122/61; PULSE 87; TEMP 100.5
== END 2019-08-21 19:01 | disposition home or self-care (01) ==
LOC: JER 15:28
DX: J18.9 Pneumonia, unspecified organism (principal); I10 Essential (primary) hypertension; E78.00 Pure hypercholesterolemia, unspecified; I25.10 Atherosclerotic heart disease of native coronary artery without angina pectoris
CPT/HCPCS: 36415; 71045-TC-FY; 80053; 81003; 85025; 87086; 87804; 99284-25

== ENCOUNTER 2019-10-01 09:38 | Inpatient (IN) | payer OTHER ==
[2019-10-01 09:57] VITALS: BMI 34.0
[2019-10-01] MEDS ORDERED: SODIUM CHLORIDE 2,449 ML IV ONE (10:19)
[2019-10-01] MEDS ORDERED: ACETAMINOPHEN 325 MG TABLET (FP) PO ONE (10:30)
--- NOTE | 2019-10-01 10:48 | PDOC ---
History of Present Illness - General Chief Complaint: Cold Symptoms Stated Complaint: FLU LIKE SYMPTOMS Time Seen by Provider: 10/01/19 10:10 History Source: Patient, Family Exam Limitations: No Limitations - History of Present Illness Initial Comments: 10/01/19 10:34 Patient is an 89-year-old male who presents to the ED with a family member with complaint of fevers, body aches, cough and URI symptoms. He has a history of an irregular heartbeat, CHF. Patient is primarily Sinhala-speaking and translation was performed with his family member. The patient did get a flu shot this year. The patient explains that all of his family members have similar symptoms but his has been the worse. He does admit to having some shortness of breath and cough. He last took Tylenol at 1 AM. He denies any chest pain at this time. He does admit to having some epigastric pain. Past History - Past Medical History Allergies/Adverse Reactions: Allergies Allergy/AdvReac Type Severity Reaction Status Date / Time No Known Allergies Allergy Verified 10/01/19 09:52 Home Medications: Ambulatory Orders Apixaban [Eliquis -] 5 mg PO BID #40 tablet 05/22/16 Brimonidine Tartrate/Timolol [Combigan 0.2%-0.5% Eye Drops] 1 drop OS BID Pantoprazole Sodium [Protonix -] 40 mg PO DAILY 10/26/16 Lisinopril [Zestril] 2.5 mg PO DAILY 08/21/19 Loratadine 10 mg PO DAILY 08/21/19 Brinzolamide [Azopt] 1 drop OU TID 10/01/19 Budesonide/Formeterol Fumarate [SYMBICORT 160/4.5mcg -] 2 puff IH DAILY Fluticasone Prop 0.05% Nasal [Flonase -] 1 spray NS DAILY 10/01/19 Latanoprost 1 drop OS HS 10/01/19 Atorvastatin Calcium [Lipitor] 20 mg PO HS 10/02/19 Anemia: No Asthma: No Cancer: No Cardiac Disorders: Yes CVA: No COPD: No CHF: Yes Dementia: No Diabetes: No GI Disorders: Yes (gerd) Disorders: No HTN: Yes Hypercholesterolemia: Yes Liver Disease: No Seizures: No Thyroid Disease: No - Surgical History Appendectomy: No Cardiac Surgery: No Cholecystectomy: No Lung Surgery: No Neurologic Surgery: No Orthopedic Surgery: No - Immunization History Immunization Up to Date: No - Psycho Social/Smoking Cessation Hx Smoking History: Never smoked Have you smoked in the past 12 months: No Information on smoking cessation initiated: No Hx Alcohol Use: No Drug/Substance Use Hx: No Substance Use Type: None Review of Systems - Review of Systems Comments:: 10/01/19 10:35 - Review of Systems Able to Perform ROS?: Yes Constitutional: No: Night Sweats, Weakness; Positive: Fever, Chills, Loss of Appetite HEENTM: No: Eye Pain, Vision changes, Ear Pain, Throat Pain, Throat Swelling, Mouth Pain, Difficulty Swallowing Respiratory: No: Wheezing, Sputum Production; Positive: Cough, Shortness of Breath Cardiac (ROS): No: Chest Pain, Chest Tightness, Palpitations, Irregular Heart Beat, Edema ABD/GI: No: Nausea, Vomiting, Diarrhea, Positive: Epigastric Abdominal Pain : No Dysuria, No Hematuria, No Frequency, No Urgency Musculoskeletal: No: Muscle Pain, Back Pain, Joint Pain, Muscle Weakness, Neck Pain Integumentary: No: Lesions, Rash Neurological: No: Headache, Numbness, Tingling, Weakness, Speech Difficulties *Physical Exam - Vital Signs Last Vital Signs Temp Pulse Resp BP Pulse Ox 100 F H 65 20 157/71 97 10/01/19 09:53 10/01/19 09:53 10/01/19 09:53 10/01/19 09:53 10/01/19 09:53 - Physical Exam 10/01/19 10:48 - Physical Exam General Appearance: Nourished, Appropriately Dressed, No Distress, non toxic appearing HEENT: EOMI, Normal Voice, No Pharyngeal Erythema, No Muffled/Hoarse voice, No Tonsillar Exudate, No Tonsillar Erythema, No Nasal Congestion, No Rhinorrhea, Hearing Grossly Normal, TMs Normal, No TM Bulging, No TM Dullness, No TM Erythema Neck: Supple, + anterior cervical lympadenopathy with tenderness b/l, No Rigidity, No Decreased range of motion Respiratory/Chest: No Respiratory Distress, No Accessory Muscle Use; Good air entry b/l with diffuse rhonchi appreciated. No retractions. Cardiovascular: Irregular rhythm with normal rate, S1, S2 Gastrointestinal/Abdominal: Normal Bowel Sounds, Soft. No Guarding, No Rebound, No Rigidity; + epigastric abdominal tenderness to palpation Musculoskeletal: Normal Inspection. No Decreased Range of Motion Extremity: Normal Capillary Refill, Normal Inspection Integumentary: Normal Color, Dry. No Rash Neurologic: manager surgical II-XII NML intact, Fully Oriented, Alert, Normal Mood/Affect, Normal Response ED Treatment Course - LABORATORY CBC & Chemistry Diagram: 10/02/19 08:47 10/04/19 07:50 - ADDITIONAL ORDERS Additional order review: 10/01/19 12:53 Laboratory Tests 10/01/19 10/01/19 10/01/19 10:40 10:40 10:40 PT with INR 24.30 H INR 2.04 H PTT (Actin FS) 38.1 H VBG pH 7.43 H POC VBG pCO2 38.1 POC VBG pO2 50.5 H VBG HCO3 24.6 VBG O2 Sat (Anum) 83.0 H VBG Base Excess 0.8 Influenza A (Rapid) Negative Influenza B (Rapid) Negative - RADIOLOGY Radiology Studies Ordered: Category Date Time Status CHEST X-RAY PORTABLE* [RAD] Stat Radiology 10/01/19 10:21 Ordered Medical Decision Making - Medical Decision Making 10/01/19 10:54 Assessment: Patient is an 89-year-old male with fever, body aches, chills and cough. Plan: -Sepsis work up initialized although pt does not meet sepsis/SIRS criteria. -Since he has a history of CHF, we will hold on giving 30cc/kg of fluids. 500CC of NS bolus ordered. -Tylenol PO -Influenza swab sent -Will reassess 10/01/19 12:53 I have discussed the case with Dr. Deluca. The patient appears to be having a COPD exacerbation. He is feeling slightly better after duonebs in the ED. I believe he would benefit from admission for COPD exacerbation. I have made the patient and family aware that he will be admitted to the hospital for further evaluation and treatment. He agrees with this treatment and plan and is stable for admission. 10/01/19 12:[address] Valdovinos's service has been placed as he admits for Dr. Chacko. Spoke to Dr. Miller and endorsed the patient to him. He accepts the patient on his service for admission. Discharge - Discharge Information Problems reviewed: Yes Clinical Impression/Diagnosis: Cough, COPD exacerbation Fever Qualifiers: Fever type: due to other condition Qualified Code(s): R50.81 - Fever presenting with conditions classified elsewhere - Admission Yes - Follow up/Referral - Patient Discharge Instructions - Post Discharge Activity
[2019-10-01] MEDS ORDERED: ACETAMINOPHEN 325 MG TABLET (FP) ONE (10:53)
[2019-10-01] MEDS ORDERED: SODIUM CHLORIDE 0.9% 500 ML INFUS.BAG IV ONE (10:57)
[2019-10-01 11:06] LABS: BASO % 0.3 % (0-2.0); EOS % 0.5 % (0-4.5); HEMATOCRIT 33.8 % (35.4-49); HEMOGLOBIN 11.5 GM/dL (11.7-16.9); LYMPH % 13.5 % (8-40); MCH 30.6 pg (25.7-33.7); MCHC 33.9 g/dl (32.0-35.9); MEAN CELL VOLUME 90.4 fl (80-96); NEUT % 74.7 % (42.8-82.8); PLATELET COUNT 195 K/MM3 (134-434); RBC 3.74 M/mm3 (4.00-5.60); WHITE BLOOD COUNT 10.7 K/mm3 (4.0-10.0)
[2019-10-01 11:12] LABS: VENOUS PC02 38.1 mmHg (38-52); VENOUS PH 7.43 (7.31-7.41); VENOUS PO2 50.5 mmHg (28-48)
[2019-10-01 11:18] LABS: INR 2.04 (0.83-1.09); PROTHROMBIN TIME (PATIENT) 24.3 SEC (9.7-13.0)
[2019-10-01 11:20] LABS: ACTIVATED PTT 38.1 SECONDS (25.2-36.5)
[2019-10-01 11:45] LABS: ALBUMIN 3.4 g/dl (3.4-5.0); BILIRUBIN,TOTAL 1.8 mg/dL (0.2-1); CALCIUM 8.2 mg/dL (8.5-10.1); CREATININE 0.9 mg/dL (0.55-1.3); POTASSIUM 3.8 mmol/L (3.5-5.1); TOT PROT 6.8 g/dl (6.4-8.2)
[2019-10-01] MEDS: ALBUTEROL SO4 2.5/IPRATROPIUM 0.5 INH SOL 3 ML VIAL.NEB. NEB SCH ×5 (11:45→20:45)
[2019-10-01] MEDS ORDERED: ALBUTEROL SO4 2.5/IPRATROPIUM 0.5 INH SOL 3 ML VIAL.NEB. NEB ONE ×3 (11:47→19:25)
--- NOTE | 2019-10-01 11:59 | PDOC ---
*Physical Exam - Vital Signs Last Vital Signs Temp Pulse Resp BP Pulse Ox 100 F H 65 20 157/71 97 10/01/19 09:53 10/01/19 09:53 10/01/19 09:53 10/01/19 09:53 10/01/19 09:53 - Physical Exam 10/01/19 11:54 Low-grade fever 100, vital signs otherwise within normal limits including O2 sat 96% on room air Seated comfortably in stretcher with mask on, no respiratory distress, conversant Oropharynx clear, neck supple Heart is irregularly irregular with normal rate Lungs with diffuse expiratory wheezing and inspiratory rhonchi, no focally decreased breath sounds, good air entry bilaterally Abdomen benign Trace pretibial edema bilaterally Heart Score/ECG Review #1 ECG reviewed & interpreted by me at: 10:37 General ECG Interpretation: Normal Rate (afib at 64), Normal Intervals (qtc 414) , No acute ischemic changes ED Treatment Course - LABORATORY CBC & Chemistry Diagram: 10/01/19 10:40 10/01/19 10:40 - ADDITIONAL ORDERS Additional order review: Laboratory Results 10/01/19 10/01/19 10/01/19 10:40 10:40 10:40 PT with INR INR PTT (Actin FS) VBG pH 7.43 H POC VBG pCO2 38.1 POC VBG pO2 50.5 H VBG HCO3 24.6 VBG O2 Sat (Anum) 83.0 H VBG Base Excess 0.8 Sodium 134 L Potassium 3.8 Chloride 101 Carbon Dioxide 24 Anion Gap 9 BUN 10.0 Creatinine 0.9 Est GFR (CKD-EPI)AfAm 88.69 Est GFR (CKD-EPI)NonAf 76.52 Random Glucose 95 Lactic Acid 1.3 Calcium 8.2 L Total Bilirubin 1.8 H AST 24 ALT 30 Alkaline Phosphatase 235 H Troponin I Total Protein 6.8 Albumin 3.4 10/01/19 10/01/19 10:40 10:40 PT with INR 24.30 H INR 2.04 H PTT (Actin FS) 38.1 H VBG pH POC VBG pCO2 POC VBG pO2 VBG HCO3 VBG O2 Sat (Anum) VBG Base Excess Sodium Potassium Chloride Carbon Dioxide Anion Gap BUN Creatinine Est GFR (CKD-EPI)AfAm Est GFR (CKD-EPI)NonAf Random Glucose Lactic Acid Calcium Total Bilirubin AST ALT Alkaline Phosphatase Troponin I 0.02 Total Protein Albumin 02/11/20 10:40 RBC 3.74 L MCV 90.4 MCHC 33.9 RDW 15.0 MPV 8.0 Neutrophils % 74.7 Lymphocytes % 13.5 Monocytes % 11.0 H Eosinophils % 0.5 Basophils % 0.3 - Medications Given in the ED: ED Medications Discontinued Medications Generic Name Dose Route Start Last Admin Trade Name Belinda PRN Reason Stop Dose Admin Acetaminophen 650 mg 10/01/19 10:30 10/01/19 10:50 Tylenol - PO 10/01/19 10:31 650 mg ONCE ONE Administration Sodium Chloride 2,449 mls @ 1,224.5 mls/hr 10/01/19 10:19 10/01/19 10:37 Normal Saline - 30 ml/kg infuse over 2 hr (2449 ml) 10/01/19 12:18 Not Given IV ONCE ONE Sodium Chloride 500 ml 10/01/19 10:57 10/01/19 11:14 Normal Saline - IV 10/01/19 10:58 500 ml ONCE ONE Administration Medical Decision Making - Medical Decision Making 10/01/19 11:55 Patient seen and evaluated with the nurse practitioner. I agree with the overall evaluation, assessment, and management with the following summary of visit: 89-year-old male with possible history of COPD (no formal diagnosis but reports he has been prescribed daily inhaler treatments) presents now with worsening URI symptoms over the last 3 to 4 days, now with more prominent cough occasionally productive of yellow sputum. No persistent chest pain, slight dyspnea, has been ill as well. No GI complaints, hemodynamically stable with exam localizing to abnormal lung sounds, could be consistent with bronchitis in the setting of viral disease/possible influenza, rule out pneumonia. Sepsis protocol was initiated though patient does not quite meet criteria for Sirs Trial of nebulizers EKG is nonischemic Chest x-ray influenza swab. If superimposed pneumonia, will need antibiotics and admission. Reassess, dispo accordingly. Discharge - Discharge Information Clinical Impression/Diagnosis: Cough - Follow up/Referral Referrals: Malena Chacko [Primary Care Provider] - - Patient Discharge Instructions - Post Discharge Activity
[2019-10-01] MEDS ORDERED: methylPREDNISolone NA SUCC 125 MG/2 ML VIAL IVPB ONE (12:31)
[2019-10-01] MEDS ORDERED: methylPREDNISolone NA SUCC 125 MG/2 ML VIAL ONE (12:36)
[2019-10-01 14:09] LABS: HYALINE CASTS 1 /lpf (0-8); URINE APPEARANCE CLEAR; URINE BACTERIA 5.5 /hpf (NEGATIVE); URINE BILIRUBIN NEGATIVE (NEGATIVE); URINE COLOR YELLOW; URINE GLUCOSE (UA) NEGATIVE (NEGATIVE); URINE KETONE NEGATIVE (NEGATIVE); URINE LEUK ESTERASE NEGATIVE (NEGATIVE); URINE NITRITE NEGATIVE (NEGATIVE); URINE PROTEIN 3+ (NEGATIVE); URINE RBC 1 /hpf (0-4); URINE WBC 1 /hpf (0-5)
[2019-10-01] MEDS ORDERED: ACETAMINOPHEN 325 MG TABLET (FP) PO PRN (17:10)
[2019-10-01] MEDS: PATIENT'S OWN MEDICATION (NON-FORMULARY) (Brimonidine Tartrate/Timolol [Combigan 0.2%-0.5% OP SCH (17:17)
[2019-10-01] MEDS ORDERED: CEFTRIAXONE 1 GM/50 ML BAG ONE (17:20)
[2019-10-01] MEDS ORDERED: AZITHROMYCIN IVPB 500 MG/250 ML BAG IVPB ONE (17:20)
[2019-10-01] MEDS: CEFTRIAXONE 1 GM in DEXTROSE 5%-WATER - 50 ML IVPB SCH (17:26)
[2019-10-01] MEDS: AZITHROMYCIN IVPB 500 MG/250 ML BAG IVPB SCH (18:10)
[2019-10-01] MEDS ORDERED: methylPREDNISolone NA SUCC 40 MG/1 ML VIAL ONE (19:25)
[2019-10-01] MEDS: methylPREDNISolone NA SUCC 125 MG/2 ML VIAL IVPUSH SCH (20:22)
[2019-10-01] MEDS: APIXABAN 5 MG TABLET PO SCH (22:33)
[2019-10-02] MEDS: methylPREDNISolone NA SUCC 125 MG/2 ML VIAL IVPUSH SCH ×2 (02:00→09:34)
[2019-10-02] MEDS: ALBUTEROL SO4 2.5/IPRATROPIUM 0.5 INH SOL 3 ML VIAL.NEB. NEB SCH ×3 (09:05→16:40)
[2019-10-02] MEDS ORDERED: PT OWN MED DRAWER 7, Y5N ONE (09:18)
[2019-10-02 09:19] LABS: BASO % 0.1 % (0-2.0); HEMATOCRIT 33.8 % (35.4-49); HEMOGLOBIN 11.4 GM/dL (11.7-16.9); LYMPH % 6.1 % (8-40); MCH 30.4 pg (25.7-33.7); MCHC 33.8 g/dl (32.0-35.9); MEAN CELL VOLUME 89.8 fl (80-96); MEAN PLT VOLUME 8.3 fl (7.5-11.1); MONO % 1.8 % (3.8-10.2); PLATELET COUNT 209 K/MM3 (134-434); RBC 3.76 M/mm3 (4.00-5.60); RDW 15.4 % (11.9-15.9); WHITE BLOOD COUNT 15.6 K/mm3 (4.0-10.0)
[2019-10-02] MEDS: AZITHROMYCIN IVPB 500 MG/250 ML BAG IVPB SCH (09:34)
[2019-10-02] MEDS: APIXABAN 5 MG TABLET PO SCH ×2 (09:35→21:43)
[2019-10-02] MEDS: LISINOPRIL 5 MG TABLET (FP) PO SCH (09:35)
[2019-10-02] MEDS: PANTOPRAZOLE 40 MG TABLET PO SCH (09:36)
[2019-10-02 10:09] LABS: ALBUMIN 3.3 g/dl (3.4-5.0); ALK PHOS 210 U/L (45-117); ANION GAP 9 MMOL/L (8-16); BLOOD UREA NITROGEN 16.6 mg/dL (7-18); CALCIUM 8.4 mg/dL (8.5-10.1); CHLORIDE 104 mmol/L (98-107); CO2 22 mmol/L (21-32); CREATININE 0.8 mg/dL (0.55-1.3); GLUCOSE,RANDOM 196 mg/dL (74-106); MAGNESIUM 1.7 mg/dL (1.8-2.4); N-TERMINAL BNP 2555.5 pg/ml (5-450); POTASSIUM 3.8 mmol/L (3.5-5.1); SGOT/AST 18 U/L (15-37); SGPT/ALT 27 U/L (13-61); SODIUM 135 mmol/L (136-145); TOT PROT 7.2 g/dl (6.4-8.2)
[2019-10-02 10:24] LABS: ANISOCYTOSIS 0; MACROCYTOSIS 0; PLATELET ESTIMATE NORMAL
--- NOTE | 2019-10-02 10:24 | HP ---
Admitting History and Physical - Primary Care Physician PCP: Jason Miller - Admission Chief Complaint: SHORTNESS OF BREATH/COUGH History of Present Illness: 89 Y/O MALE WITH COPD HERE WITH COUGH AND SHORTNESS OF BREATH FOR 3 DAYS PROGRESSIVELY WORSE AND BROUGHT TO ED BY FAMILY FOR EVAL. CASE PRESENTED BY Bonny TO OUR STAFF AND WAS ADMITTED OVERNIGHT. 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 Cardiovascular: Yes: AFIB, HTN, Hyperlipdemia - Past Surgical History Past Surgical History: Yes: None - Smoking History Smoking history: Never smoked Have you smoked in the past 12 months: No - Alcohol/Substance Use Hx Alcohol Use: No Home Medications - Allergies Allergies/Adverse Reactions: Allergies Allergy/AdvReac Type Severity Reaction Status Date / Time No Known Allergies Allergy Verified 10/01/19 09:52 - Home Medications Home Medications: Ambulatory Orders Apixaban [Eliquis -] 5 mg PO BID #40 tablet 05/22/16 Brimonidine Tartrate/Timolol [Combigan 0.2%-0.5% Eye Drops] 5 ml OP ASDIR Pantoprazole Sodium [Protonix -] 40 mg PO DAILY 10/26/16 Lisinopril [Zestril] 2.5 mg PO DAILY 08/21/19 Loratadine 10 mg PO DAILY 08/21/19 Brinzolamide [Azopt] 10/01/19 Budesonide/Formeterol Fumarate [SYMBICORT 160/4.5mcg -] 10/01/19 Fluticasone Prop 0.05% Nasal [Flonase -] 10/01/19 Latanoprost 10/01/19 Atorvastatin Calcium [Lipitor] 20 mg PO 10/02/19 Review of Systems - Review of Systems Constitutional: reports: Chills, Malaise, Night Sweats Eyes: reports: No Symptoms HENT: reports: No Symptoms Neck: reports: No Symptoms Cardiovascular: reports: Shortness of Breath Respiratory: reports: Cough, SOB Gastrointestinal: reports: No Symptoms Genitourinary: reports: No Symptoms Musculoskeletal: reports: No Symptoms Integumentary: reports: No Symptoms Neurological: reports: No Symptoms Endocrine: reports: No Symptoms Hematology/Lymphatic: reports: No Symptoms Psychiatric: reports: No Symptoms Physical Examination Vital Signs: Vital Signs Temperature 97.9 F 10/02/19 06:00 Pulse Rate 59 L 10/02/19 06:00 Respiratory Rate 20 10/02/19 06:00 Blood Pressure 169/87 10/02/19 06:00 O2 Sat by Pulse Oximetry (%) 95 10/01/19 21:00 Constitutional: Yes: Mild Distress Eyes: Yes: WNL HENT: Yes: WNL Neck: Yes: WNL Cardiovascular: Yes: Regular Rate and Rhythm Respiratory: Yes: Diminished, On Nasal O2, Wheezes Gastrointestinal: Yes: Abdomen, Obese Renal/: Yes: WNL Musculoskeletal: Yes: Muscle Weakness Extremities: Yes: WNL Edema: No Peripheral Pulses WNL: Yes Integumentary: Yes: WNL Wound/Incision: Yes: Clean/Dry Neurological: Yes: WNL ...Motor Strength: WNL Psychiatric: Yes: WNL Labs: CBC, BMP 10/02/19 08:47 10/02/19 08:47 Imaging - Results Chest X-ray: Report Reviewed Problem List - Problems (1) COPD exacerbation Code(s): J44.1 - CHRONIC OBSTRUCTIVE PULMONARY DISEASE W (ACUTE) EXACERBATION (2) Cough Code(s): R05 - COUGH (3) Fever Code(s): R50.9 - FEVER, UNSPECIFIED Qualifiers: Fever type: due to other condition Qualified Code(s): R50.81 - Fever presenting with conditions classified elsewhere (4) CAP (community acquired pneumonia) Code(s): J18.9 - PNEUMONIA, UNSPECIFIED ORGANISM (5) Atrial fibrillation Code(s): I48.91 - UNSPECIFIED ATRIAL FIBRILLATION Qualifiers: (6) HTN (hypertension) Code(s): I10 - ESSENTIAL (PRIMARY) HYPERTENSION Qualifiers: (7) Hyperlipidemia Code(s): E78.5 - HYPERLIPIDEMIA, UNSPECIFIED Assessment/Plan PULMONARY WORKUP COPD/CHF/PNA ON IV ABX, 02 SUPPORT AND NEBS. STEROIDS IV TAPER SLOWLY COUGH SUPPRESANT. DVT PROPHYLAXIS ON ELIQUIS FOR AFIB TX. OOB T CHAIR. MONITOR LABS LOW FAT DIET LASIX FOR ELEVATED BNP/DYSPNEA
--- NOTE | 2019-10-02 10:42 | EKG ---
Test Reason : Blood Pressure : / mmHG Vent. Rate : 064 BPM Atrial Rate : 138 BPM P-R Int : 000 ms QRS Dur : 080 ms QT Int : 430 ms P-R-T Axes : 000 031 -40 degrees QTc Int : 443 ms ATRIAL FIBRILLATION NONSPECIFIC ST ABNORMALITY ABNORMAL QRS-T ANGLE, CONSIDER PRIMARY T WAVE ABNORMALITY ABNORMAL ECG WHEN COMPARED WITH ECG OF 01-OCT-2019 10:37, NO SIGNIFICANT CHANGE WAS FOUND Confirmed by Mehrdad Chun MD ([id number]) on 10/02/2019 10:42:13 AM Referred By: Confirmed By:Mehrdad Chun MD
--- NOTE | 2019-10-02 10:44 | EKG ---
Test Reason : Blood Pressure : / mmHG Vent. Rate : 064 BPM Atrial Rate : 357 BPM P-R Int : 000 ms QRS Dur : 082 ms QT Int : 402 ms P-R-T Axes : 000 028 -22 degrees QTc Int : 414 ms ATRIAL FIBRILLATION NONSPECIFIC ST ABNORMALITY ABNORMAL ECG WHEN COMPARED WITH ECG OF 26-OCT-2016 03:49, NO SIGNIFICANT CHANGE WAS FOUND Confirmed by Mehrdad Chun MD ([id number]) on 10/02/2019 10:43:47 AM Referred By: Confirmed By:Mehrdad Chun MD
[2019-10-02] MEDS ORDERED: FLU VACCINE QUAD 60 MCG/0.5 ML (MDV 19-20) IM ONE (12:00)
--- NOTE | 2019-10-02 12:39 | PN ---
Progress Note (short form) - Note Progress Note: ID consult dictated imp/reccd history from son 89 yo man admitted from home with 4 day history of fever/body aches and cough he was ill with fever and cough- August 21 (family was sick then)- treated with po levaquin for 5 days with resolution of his symptoms he then became ill again 4 days ago no one is sick at home now- he lives with his son and family ?pneumonia, ?bronchitis-continue rocephin/zithromax influenza screen negative f/u cultures copd exacerbation- per pulmonary Problem List - Problems (1) Pneumonia Code(s): J18.9 - PNEUMONIA, UNSPECIFIED ORGANISM Qualifiers: Pneumonia type: due to unspecified organism Laterality: left Lung location: lower lobe of lung Qualified Code(s): J18.9 - Pneumonia, unspecified organism (2) COPD exacerbation Code(s): J44.1 - CHRONIC OBSTRUCTIVE PULMONARY DISEASE W (ACUTE) EXACERBATION (3) Atrial fibrillation Code(s): I48.91 - UNSPECIFIED ATRIAL FIBRILLATION Qualifiers: (4) CHF (congestive heart failure) Code(s): I50.9 - HEART FAILURE, UNSPECIFIED
[2019-10-02] MEDS ORDERED: cefTRIAXone SODIUM 1 GM VIAL ONE (12:48)
[2019-10-02] MEDS ORDERED: DEXTROSE 5%-WATER - 50 ML IVPB ONE (12:48)
[2019-10-02] MEDS: CEFTRIAXONE 1 GM in DEXTROSE 5%-WATER - 50 ML IVPB SCH (12:55)
--- NOTE | 2019-10-02 13:46 | PN ---
Progress Note (short form) - Note Progress Note: PULMONARY CONSULTATION DICTATED 10/02/19 IMP COPD EXACERBATION URI LIKELY VIRAL AFIB ? CHF HLD HTN PLAN ABX STEROID TAPER INHALED BROCHODILATORS O2 NEEDED ECHO CHEST CT PFTS OUTPATIENT DR REYES Problem List - Problems (1) COPD exacerbation Code(s): J44.1 - CHRONIC OBSTRUCTIVE PULMONARY DISEASE W (ACUTE) EXACERBATION (2) Cough Code(s): R05 - COUGH (3) Atrial fibrillation Code(s): I48.91 - UNSPECIFIED ATRIAL FIBRILLATION Qualifiers: (4) HTN (hypertension) Code(s): I10 - ESSENTIAL (PRIMARY) HYPERTENSION Qualifiers: (5) Hyperlipidemia Code(s): E78.5 - HYPERLIPIDEMIA, UNSPECIFIED
--- NOTE | 2019-10-02 14:17 | CONS ---
DATE OF CONSULTATION: DATE OF DICTATION: 10/02/2019 INFECTIOUS DISEASE CONSULTATION HISTORY OF PRESENT ILLNESS: This is an 89-year-old man admitted from home. The history is from his son who is at the bedside. Patient has a history of atrial fibrillation and CHF in the past. He is followed by Dr. Chacko at [facility]. Came to the ER on August 21. At that time he had fever and chest x-ray showed a probable left lower lobe pneumonia and he was discharged on Levaquin which he took for 5 days with improvement. His son states at that time he had multiple sick family members. He was well until 4 days ago when he started having fevers, body aches and cough. The family member says now everybody else has recovered back in August , but he is the only person who recurred. He had influenza vaccine in April. ALLERGIES: He has no known drug allergies. MEDICATIONS: He takes apixaban, Combigan eye drops, Singulair, Protonix, Lipitor, lisinopril, loratadine as an outpatient. PAST MEDICAL HISTORY: Notable for CHF, GERD, hypercholesterolemia, hypertension. His son reports that when he gets sick he does develop wheezing. SURGICAL HISTORY: Negative. SOCIAL HISTORY: He is originally from [place]. He lives with his family. No history of cigarette, alcohol or substance abuse. REVIEW OF SYSTEMS: He has had no GI symptoms. No nausea, vomiting or diarrhea. He does have some midepigastric discomfort. PHYSICAL EXAMINATION:General: He is a pleasant man in no acute distress. Son states he is doing much better since admission. Vital Signs: T-Max was 100, temp is 99.6, pulse is 61, blood pressure 150/92, respiratory rate is 18, he is saturating 95% on room air. HEENT: He is normocephalic. His eyes are anicteric. Neck: Supple. Lungs: Clear to auscultation. Heart: Regular rate and rhythm. Abdomen: Soft. He has mild midepigastric discomfort to deep palpation. Extremities: Without edema. Skin: He has no rash. LABORATORY DATA: White count on admission was 10.7, today is 15.6, but he is on steroids, platelets are 209, hemoglobin is 11.4. BUN is 16 and creatinine is 0.8. LFTs are notable for an alkaline phosphatase of 210. Urinalysis is negative. Influenza screen is negative. Cultures are negative to date and chest x-ray reveals improvement. The increased lung markings have diminished since the prior film. IMPRESSION AND RECOMMENDATIONS: 1. In summary this is an 89-year-old man admitted from home with possible pneumonia, possible bronchitis. Continue Rocephin, Zithromax. Influenza screen is negative. Follow up his cultures. 2. Chronic obstructive pulmonary disease exacerbation. He appears much improved on steroids. Follow up with Pulmonary. Further recommendations to follow. KYRIE PONCE M.D. [id number] MTDD
--- NOTE | 2019-10-02 16:13 | CONS ---
DATE OF CONSULTATION: 10/02/2019 REFERRING PHYSICIAN: Raz Valdovinos M.D. HISTORY OF PRESENT ILLNESS: The patient is an 89-year-old male, past medical history of atrial fibrillation on Eliquis, CHF, question of COPD maintained on inhaler, hypertension, hyperlipidemia, nonsmoker, admitted to [facility] with complaint of 3-day history of increasing shortness of breath, cough productive of yellow sputum, and chills and fever. Patient apparently stated he was doing well until a couple of days prior to when he started developing shortness of breath, fever, and shaking chills. Denies any chest pain, nausea, vomiting, diaphoresis. Complained of shortness of breath and wheezing. Presented to the emergency department above. In the ER, he was noted to have bilateral wheezes as well as cough and congestion. He was started on inhaled bronchodilators and antibiotic therapy and transferred to medical floor for further management. Patient denies any history of tobacco use. He was born in [place], moved to the [facility] many years ago. He apparently has been maintained on inhalers at home, unknown reason. He has never had a formal pulmonary function test. He denies any history of recent travel. PAST MEDICAL HISTORY: Again, includes hypertension, hyperlipidemia, CHF, atrial fibrillation, questionable COPD. CURRENT MEDICATIONS: Include: 1. Combigan eyedrops. 2. Solu-Medrol 80 q.6. 3. Tylenol. 4. Prinivil. 5. Zithromax. 6. Ceftriaxone. 7. Eliquis. 8. DuoNeb. 9. Protonix. REVIEW OF SYSTEMS: Positive cough. Positive sputum production. Positive shortness of breath. Positive fever. Positive chills. No chest pain. No palpitations, no nausea or vomiting. PHYSICAL EXAMINATION: General: The patient is a well-developed, nourished male, awake and alert, in no acute distress. Vital Signs: T-max is 100, currently 99.6. HEENT: Normocephalic, atraumatic. Neck: Supple. Heart: Irregularly irregular S1, S2. Chest: A few scattered bilateral wheezes. Abdomen: Soft, bowel sounds positive. Extremities: No cyanosis, edema. LABORATORY: WBC is 15.6, hemoglobin 11.4, hematocrit 33.8, platelet count of 209,000. INR is 2.04, Venous blood gas 7.43, pCO2 of 38, pO2 of 50, bicarbonate of 24. BUN is 16, creatinine 0.8, BNP 202,555. Chest x-ray: Mild congestion. IMPRESSION: 1. Dyspnea, cough, chest congestion, likely secondary to chronic obstructive pulmonary disease exacerbation, likely secondary to viral upper respiratory infection. 2. Atrial fibrillation. 3. Includes a component of congestive heart failure as noted by elevated BNP. 4. Hypertension. 5. Hyperlipidemia. PLAN: Antibiotics. Steroid taper. Inhaled bronchodilators. Supplemental O2 as needed. Obtain echo. CT scan of the chest and pulmonary function test as outpatient. BENNY REYES M.D. HARESH/[id number]
[2019-10-02] MEDS: methylPREDNISolone NA SUCC 40 MG/1 ML VIAL IVPUSH SCH ×2 (16:42→21:43)
[2019-10-02] MEDS: TIMOLOL 0.5% OPHTHALMIC SOL 5 ML BOTTLE OS SCH (21:44)
[2019-10-02] MEDS: BRIMONIDINE TARTRATE 0.2% OPHTHALMIC 5 ML BOTTLE OS SCH (21:44)
[2019-10-02] MEDS: ATORVASTATIN CA 20 MG TABLET (FP) PO SCH (21:44)
[2019-10-03] MEDS: PATIENT'S OWN MEDICATION (NON-FORMULARY) (Brimonidine Tartrate/Timolol [Combigan 0.2%-0.5% OP SCH (00:14)
[2019-10-03] MEDS: methylPREDNISolone NA SUCC 40 MG/1 ML VIAL IVPUSH SCH ×3 (03:50→21:42)
[2019-10-03] MEDS: ALBUTEROL SO4 2.5/IPRATROPIUM 0.5 INH SOL 3 ML VIAL.NEB. NEB SCH ×4 (07:25→22:33)
[2019-10-03] MEDS ORDERED: cefTRIAXone SODIUM 1 GM VIAL ONE (09:53)
[2019-10-03] MEDS ORDERED: DEXTROSE 5%-WATER - 50 ML IVPB ONE (09:54)
[2019-10-03] MEDS: LISINOPRIL 5 MG TABLET (FP) PO SCH (09:55)
[2019-10-03] MEDS: PANTOPRAZOLE 40 MG TABLET PO SCH (09:55)
[2019-10-03] MEDS: CEFTRIAXONE 1 GM in DEXTROSE 5%-WATER - 50 ML IVPB SCH (09:56)
[2019-10-03] MEDS: APIXABAN 5 MG TABLET PO SCH ×2 (09:56→21:42)
[2019-10-03] MEDS: BRIMONIDINE TARTRATE 0.2% OPHTHALMIC 5 ML BOTTLE OS SCH ×2 (10:05→21:43)
[2019-10-03] MEDS: TIMOLOL 0.5% OPHTHALMIC SOL 5 ML BOTTLE OS SCH ×2 (10:05→21:43)
--- NOTE | 2019-10-03 10:19 | PN ---
Progress Note, Physician Chief Complaint: AWAKE ALERT FEELING BETTER DENIES FEVER OR CHILS ON IV ABX AND 02 NC - Current Medication List Current Medications: Active Medications Acetaminophen (Tylenol -) 650 mg PO Q4H PRN PRN Reason: FEVER Albuterol/Ipratropium (Duoneb -) 1 amp NEB RQID [facility] Last Admin: 10/03/19 07:25 Dose: 1 amp Apixaban (Eliquis -) 5 mg PO BID [facility] Last Admin: 10/03/19 09:56 Dose: 5 mg Atorvastatin Calcium (Lipitor -) 20 mg PO HS [facility] Last Admin: 10/02/19 21:44 Dose: 20 mg Brimonidine Tartrate (Alphagan 0.2% -) 1 drop OS BID [facility] Last Admin: 10/03/19 10:05 Dose: 1 drop Azithromycin (Zithromax 500mg Ivpb (Pre-Docked)) 500 mg in 250 mls @ 250 mls/ hr IVPB DAILY [facility] Last Admin: 10/02/19 09:34 Dose: 250 mls/hr Ceftriaxone Sodium 1 gm/ (Dextrose) 50 mls @ 100 mls/hr IVPB DAILY [facility]; Protocol Last Admin: 10/03/19 09:56 Dose: 100 mls/hr Lisinopril (Prinivil) 2.5 mg PO DAILY [facility] Last Admin: 10/03/19 09:55 Dose: 2.5 mg Methylprednisolone Sodium Succinate (Solu-Medrol -) 40 mg IVPUSH Q6H-IV [facility] Last Admin: 10/03/19 09:55 Dose: 40 mg Pantoprazole Sodium (Protonix -) 40 mg PO DAILY [facility] Last Admin: 10/03/19 09:55 Dose: 40 mg Timolol Maleate (Timoptic 0.5%) 1 drop OS BID [facility] Last Admin: 10/03/19 10:05 Dose: 1 drop - Objective Vital Signs: Vital Signs Temperature 98.1 F 10/03/19 06:00 Pulse Rate 57 L 10/03/19 09:49 Respiratory Rate 20 10/03/19 09:49 Blood Pressure 131/57 L 10/03/19 09:49 O2 Sat by Pulse Oximetry (%) 98 10/02/19 21:00 Constitutional: Yes: Mild Distress Cardiovascular: Yes: Regular Rate and Rhythm Respiratory: Yes: Diminished, On Nasal O2, Wheezes Gastrointestinal: Yes: Soft, Abdomen, Obese Genitourinary: Yes: WNL Musculoskeletal: Yes: WNL Extremities: Yes: WNL Edema: No Integumentary: Yes: WNL Wound/Incision: Yes: Clean/Dry Neurological: Yes: WNL ...Motor Strength: WNL Psychiatric: Yes: WNL Labs: CBC, BMP 10/02/19 08:47 10/02/19 08:47 INR, PTT INR 2.04 (0.83-1.09) H 10/01/19 10:40 Problem List - Problems (1) COPD exacerbation Code(s): J44.1 - CHRONIC OBSTRUCTIVE PULMONARY DISEASE W (ACUTE) EXACERBATION (2) Cough Code(s): R05 - COUGH (3) Fever Code(s): R50.9 - FEVER, UNSPECIFIED Qualifiers: Fever type: due to other condition Qualified Code(s): R50.81 - Fever presenting with conditions classified elsewhere (4) CAP (community acquired pneumonia) Code(s): J18.9 - PNEUMONIA, UNSPECIFIED ORGANISM (5) Atrial fibrillation Code(s): I48.91 - UNSPECIFIED ATRIAL FIBRILLATION Qualifiers: (6) HTN (hypertension) Code(s): I10 - ESSENTIAL (PRIMARY) HYPERTENSION Qualifiers: (7) Hyperlipidemia Code(s): E78.5 - HYPERLIPIDEMIA, UNSPECIFIED Assessment/Plan PULMONARY WORKUP COPD/CHF/PNA ON IV ABX, 02 SUPPORT AND NEBS. STEROIDS IV TAPER SLOWLY CT CHEST SCAN COMPLETED AWAITING RESULTS COUGH SUPPRESSANT. DVT PROPHYLAXIS ON ELIQUIS FOR AFIB TX. OOB T CHAIR. MONITOR LABS LOW FAT DIET LASIX FOR ELEVATED BNP/DYSPNEA IMPROVING
[2019-10-03] MEDS: AZITHROMYCIN IVPB 500 MG/250 ML BAG IVPB SCH (10:40)
--- NOTE | 2019-10-03 12:02 | PN ---
Progress Note, Physician History of Present Illness: pulmonary alert,oob--chair,feeling better,dyspnea improving,less cough - Current Medication List Current Medications: Active Medications Acetaminophen (Tylenol -) 650 mg PO Q4H PRN PRN Reason: FEVER Albuterol/Ipratropium (Duoneb -) 1 amp NEB RQID [facility] Last Admin: 10/03/19 11:41 Dose: 1 amp Apixaban (Eliquis -) 5 mg PO BID [facility] Last Admin: 10/03/19 09:56 Dose: 5 mg Atorvastatin Calcium (Lipitor -) 20 mg PO HS [facility] Last Admin: 10/02/19 21:44 Dose: 20 mg Brimonidine Tartrate (Alphagan 0.2% -) 1 drop OS BID [facility] Last Admin: 10/03/19 10:05 Dose: 1 drop Azithromycin (Zithromax 500mg Ivpb (Pre-Docked)) 500 mg in 250 mls @ 250 mls/ hr IVPB DAILY [facility] Last Admin: 10/03/19 10:40 Dose: 250 mls/hr Ceftriaxone Sodium 1 gm/ (Dextrose) 50 mls @ 100 mls/hr IVPB DAILY [facility]; Protocol Last Admin: 10/03/19 09:56 Dose: 100 mls/hr Lisinopril (Prinivil) 2.5 mg PO DAILY [facility] Last Admin: 10/03/19 09:55 Dose: 2.5 mg Methylprednisolone Sodium Succinate (Solu-Medrol -) 40 mg IVPUSH Q8H-IV [facility] Pantoprazole Sodium (Protonix -) 40 mg PO DAILY [facility] Last Admin: 10/03/19 09:55 Dose: 40 mg Timolol Maleate (Timoptic 0.5%) 1 drop OS BID [facility] Last Admin: 10/03/19 10:05 Dose: 1 drop - Objective Vital Signs: Vital Signs Temperature 98.1 F 10/03/19 06:00 Pulse Rate 57 L 10/03/19 09:49 Respiratory Rate 20 10/03/19 09:49 Blood Pressure 131/57 L 10/03/19 09:49 O2 Sat by Pulse Oximetry (%) 98 10/02/19 21:00 Constitutional: Yes: Well Nourished, Calm Eyes: Yes: WNL HENT: Yes: WNL Neck: Yes: WNL Cardiovascular: Yes: Pulse Irregular, S1, S2 Respiratory: Yes: Diminished Gastrointestinal: Yes: Normal Bowel Sounds, Soft Extremities: Yes: WNL Edema: No Labs: CBC, BMP 10/02/19 08:47 10/02/19 08:47 INR, PTT INR 2.04 (0.83-1.09) H 10/01/19 10:40 Problem List - Problems (1) COPD exacerbation Code(s): J44.1 - CHRONIC OBSTRUCTIVE PULMONARY DISEASE W (ACUTE) EXACERBATION (2) Cough Code(s): R05 - COUGH (3) Atrial fibrillation Code(s): I48.91 - UNSPECIFIED ATRIAL FIBRILLATION Qualifiers: (4) HTN (hypertension) Code(s): I10 - ESSENTIAL (PRIMARY) HYPERTENSION Qualifiers: (5) Hyperlipidemia Code(s): E78.5 - HYPERLIPIDEMIA, UNSPECIFIED Assessment/Plan IMP COPD EXACERBATION improving URI LIKELY VIRAL AFIB ? CHF HLD HTN PLAN ABX STEROID TAPER INHALED BROCHODILATORS O2 NEEDED ECHO PFTS OUTPATIENT DR REYES Problem List - Problems (1) COPD exacerbation Code(s): J44.1 - CHRONIC OBSTRUCTIVE PULMONARY DISEASE W (ACUTE) EXACERBATION (2) Cough Code(s): R05 - COUGH (3) Atrial fibrillation Code(s): I48.91 - UNSPECIFIED ATRIAL FIBRILLATION Qualifiers: (4) HTN (hypertension) Code(s): I10 - ESSENTIAL (PRIMARY) HYPERTENSION Qualifiers: (5) Hyperlipidemia Code(s): E78.5 - HYPERLIPIDEMIA, UNSPECIFIED
[2019-10-03] MEDS ORDERED: PT OWN MED DRAWER 7, Y5N ONE (15:31)
[2019-10-03] MEDS: DORZOLAMIDE 2% HCL OPHTHALMIC SOLUTION 10 ML BOTTLE OU SCH ×2 (15:37→21:44)
[2019-10-03] MEDS ORDERED: methylPREDNISolone NA SUCC 40 MG/1 ML VIAL IVPUSH SCH (18:00)
[2019-10-03] MEDS: ATORVASTATIN CA 20 MG TABLET (FP) PO SCH (21:42)
[2019-10-03] MEDS: LATANOPROST 0.005% OPHTH SOLN 2.5ML BOTTLE OS SCH (21:44)
[2019-10-04] MEDS: DORZOLAMIDE 2% HCL OPHTHALMIC SOLUTION 10 ML BOTTLE OU SCH ×3 (06:38→22:52)
[2019-10-04] MEDS: ALBUTEROL SO4 2.5/IPRATROPIUM 0.5 INH SOL 3 ML VIAL.NEB. NEB SCH ×4 (07:35→21:20)
[2019-10-04 09:52] LABS: BLOOD UREA NITROGEN 19.3 mg/dL (7-18); CALCIUM 8.7 mg/dL (8.5-10.1); CREATININE 0.9 mg/dL (0.55-1.3); MAGNESIUM 2.3 mg/dL (1.8-2.4); POTASSIUM 4.3 mmol/L (3.5-5.1)
[2019-10-04] MEDS ORDERED: cefTRIAXone SODIUM 1 GM VIAL ONE (11:02)
[2019-10-04] MEDS ORDERED: DEXTROSE 5%-WATER - 50 ML IVPB ONE (11:02)
[2019-10-04] MEDS: BRIMONIDINE TARTRATE 0.2% OPHTHALMIC 5 ML BOTTLE OS SCH ×2 (11:05→22:48)
[2019-10-04] MEDS: APIXABAN 5 MG TABLET PO SCH ×2 (11:05→22:48)
[2019-10-04] MEDS: LISINOPRIL 5 MG TABLET (FP) PO SCH (11:05)
[2019-10-04] MEDS: TIMOLOL 0.5% OPHTHALMIC SOL 5 ML BOTTLE OS SCH ×2 (11:05→22:49)
[2019-10-04] MEDS: methylPREDNISolone NA SUCC 40 MG/1 ML VIAL IVPUSH SCH (11:06)
[2019-10-04] MEDS: PANTOPRAZOLE 40 MG TABLET PO SCH (11:06)
[2019-10-04] MEDS: CEFTRIAXONE 1 GM in DEXTROSE 5%-WATER - 50 ML IVPB SCH (11:06)
[2019-10-04] MEDS: AZITHROMYCIN IVPB 500 MG/250 ML BAG IVPB SCH (11:55)
--- NOTE | 2019-10-04 12:00 | PN ---
Progress Note (short form) - Note Progress Note: continues to cough no fevers feels improved chest ct with cardiomegaly, no infiltrates (my read) still not dictated Vital Signs Period Temp Pulse Resp BP Sys/Hebert Pulse Ox Last 24 Hr 97.9 F-99.1 F 53-72 18-20 139-155/56-87 97 cor-rrr lungs clear decreased bs at bases abd soft,nt ext trace pretibial edema CBC, BMP 10/02/19 08:47 10/04/19 07:50 Microbiology 10/01/19 10:40 Blood - Peripheral Venous Blood Culture - Preliminary NO GROWTH OBTAINED AFTER 72 HOURS, INCUBATION TO CONTINUE FOR 2 DAYS. 10/01/19 10:40 Blood - Peripheral Venous Blood Culture - Preliminary NO GROWTH OBTAINED AFTER 72 HOURS, INCUBATION TO CONTINUE FOR 2 DAYS. 10/02/19 16:45 Urine For Antigen Detection Legionella Antigen - Final 10/02/19 16:45 Urine For Antigen Detection Streptococcus pneumoniae Antigen (M - Final 10/01/19 13:30 Urine - Urine Clean Catch Urine Culture - Final NO GROWTH OBTAINED imp/reccd suspect bronchitis- continue ceftriaxone, d/c zithromax, po ceftin when ready for discharge influenza screen negative f/u cultures copd exacerbation- per pulmonary ?element of CHF
--- NOTE | 2019-10-04 12:06 | PN ---
Progress Note (short form) - Note Progress Note: PULMONARY AWAKE/ALERT WANTS TO GO HOME FEELS WELL VSS/AFEBRILE Constitutional: Yes: Well Nourished, Calm Eyes: Yes: WNL HENT: Yes: WNL Neck: Yes: WNL Cardiovascular: Yes: Pulse Irregular, S1, S2 Respiratory: Yes: Diminished Gastrointestinal: Yes: Normal Bowel Sounds, Soft Extremities: Yes: WNL Edema: No Labs: NOTED Problem List - Problems (1) COPD exacerbation Code(s): J44.1 - CHRONIC OBSTRUCTIVE PULMONARY DISEASE W (ACUTE) EXACERBATION (2) Cough Code(s): R05 - COUGH (3) Atrial fibrillation Code(s): I48.91 - UNSPECIFIED ATRIAL FIBRILLATION Qualifiers: (4) HTN (hypertension) Code(s): I10 - ESSENTIAL (PRIMARY) HYPERTENSION Qualifiers: (5) Hyperlipidemia Code(s): E78.5 - HYPERLIPIDEMIA, UNSPECIFIED IMP COPD EXACERBATION IMPROVED CHF/AF/ON AC HLD HTN PLAN ABX MEDROL CHANGED TO PREDNISONE INHALED BROCHODILATORS O2 NEEDED ECHO/?DIURETIC PFTS OUTPATIENT CONSIDER CARDIO CONSULT Chris SORENSEN MD
--- NOTE | 2019-10-04 15:10 | PN ---
Progress Note, Physician Chief Complaint: medicine coverage for Dr. Miller/Dr. Valdovinos feels good, asking to go home tx for URI/bronchitis, COPD exacerbation CT chest pending History of Present Illness: 89 year old male with PMH AFIB, HTN, HLD, COPD, CHF, being treated for chf/ copd. seen by pulmnology and ID. awaiting cardiology input. on admission bnp 2500. received IVMP and IV azithro, ceftriaxone, still on IV ceftriaxone - Current Medication List Current Medications: Active Medications Acetaminophen (Tylenol -) 650 mg PO Q4H PRN PRN Reason: FEVER Albuterol/Ipratropium (Duoneb -) 1 amp NEB RQID [facility] Last Admin: 10/04/19 11:25 Dose: 1 amp Apixaban (Eliquis -) 5 mg PO BID [facility] Last Admin: 10/04/19 11:05 Dose: 5 mg Atorvastatin Calcium (Lipitor -) 20 mg PO HS [facility] Last Admin: 10/03/19 21:42 Dose: 20 mg Brimonidine Tartrate (Alphagan 0.2% -) 1 drop OS BID [facility] Last Admin: 10/04/19 11:05 Dose: 1 drop Dorzolamide HCl (Trusopt 2%) 1 drop OU TID [facility] Last Admin: 10/04/19 13:57 Dose: 1 drop Ceftriaxone Sodium 1 gm/ (Dextrose) 50 mls @ 100 mls/hr IVPB DAILY [facility]; Protocol Last Admin: 10/04/19 11:06 Dose: 100 mls/hr Latanoprost (Xalatan 0.005% Eye Drops -) 1 drop OS HS [facility] Last Admin: 10/03/19 21:44 Dose: 1 drop Lisinopril (Prinivil) 2.5 mg PO DAILY [facility] Last Admin: 10/04/19 11:05 Dose: 2.5 mg Pantoprazole Sodium (Protonix -) 40 mg PO DAILY [facility] Last Admin: 10/04/19 11:06 Dose: 40 mg Prednisone (Deltasone -) 20 mg PO DAILY [facility] Timolol Maleate (Timoptic 0.5%) 1 drop OS BID [facility] Last Admin: 10/04/19 11:05 Dose: 1 drop - Objective Vital Signs: Vital Signs Temperature 97.9 F 10/04/19 08:45 Pulse Rate 66 10/04/19 11:03 Respiratory Rate 20 10/04/20 11:03 Blood Pressure 154/72 10/04/19 11:03 O2 Sat by Pulse Oximetry (%) 97 10/03/19 21:00 Constitutional: Yes: Well Nourished, No Distress Eyes: Yes: WNL HENT: Yes: WNL Neck: Yes: WNL Cardiovascular: Yes: S1, S2 Respiratory: Yes: WNL Gastrointestinal: Yes: WNL ...Rectal Exam: Yes: Deferred Genitourinary: Yes: WNL Extremities: Yes: WNL Integumentary: Yes: WNL Neurological: Yes: WNL, Alert, Other (bahraini speaking) Labs: CBC, BMP 10/02/19 08:47 10/04/19 07:50 INR, PTT INR 2.04 (0.83-1.09) H 10/01/19 10:40 Problem List - Problems (1) CHF (congestive heart failure) Assessment/Plan: bnp 2500 on admit echo not done cardiology consult I & O daily weights 2gm/2L restrictions Problems reviewed: Yes Code(s): I50.9 - HEART FAILURE, UNSPECIFIED Qualifiers: Heart failure type: unspecified (2) COPD exacerbation Assessment/Plan: pulm following ct chest pending converted to PO prednisone IV ceftriaxone neb tx outpatient f/u for PFTs off oxygen Problems reviewed: Yes Code(s): J44.1 - CHRONIC OBSTRUCTIVE PULMONARY DISEASE W (ACUTE) EXACERBATION (3) CAP (community acquired pneumonia) Assessment/Plan: pulm following ID following completed azithro, still on IV ceftriaxone afebrile cont nebtx Problems reviewed: Yes Code(s): J18.9 - PNEUMONIA, UNSPECIFIED ORGANISM Qualifiers: Laterality: unspecified laterality Qualified Code(s): J18.9 - Pneumonia, unspecified organism (4) Atrial fibrillation Assessment/Plan: cont eliquis rate controlled Problems reviewed: Yes Code(s): I48.91 - UNSPECIFIED ATRIAL FIBRILLATION Qualifiers: Atrial fibrillation type: unspecified chronic Qualified Code(s): I48.20 - Chronic atrial fibrillation, unspecified; I48.2 - Chronic atrial fibrillation (5) HTN (hypertension) Assessment/Plan: cont lisinopril sodium restriction Problems reviewed: Yes Code(s): I10 - ESSENTIAL (PRIMARY) HYPERTENSION Qualifiers: Hypertension type: essential hypertension Qualified Code(s): I10 - Essential (primary) hypertension (6) Hyperlipidemia Assessment/Plan: cont atorvastatin Problems reviewed: Yes Code(s): E78.5 - HYPERLIPIDEMIA, UNSPECIFIED Qualifiers: Hyperlipidemia type: mixed hyperlipidemia Qualified Code(s): E78.2 - Mixed hyperlipidemia Assessment/Plan #CHF #COPD exacerbation #CAP #AFIB #HTN dispo planning- likely home tomorrow pending ct chest results, card work up can be done outpatient
[2019-10-04] MEDS: predniSONE 20 MG TABLET (UD) PO SCH (15:44)
[2019-10-04] MEDS: ATORVASTATIN CA 20 MG TABLET (FP) PO SCH (22:48)
[2019-10-04] MEDS: LATANOPROST 0.005% OPHTH SOLN 2.5ML BOTTLE OS SCH (22:50)
[2019-10-05] MEDS: DORZOLAMIDE 2% HCL OPHTHALMIC SOLUTION 10 ML BOTTLE OU SCH ×3 (06:11→21:15)
[2019-10-05] MEDS: ALBUTEROL SO4 2.5/IPRATROPIUM 0.5 INH SOL 3 ML VIAL.NEB. NEB SCH ×4 (07:20→21:27)
[2019-10-05] MEDS ORDERED: cefTRIAXone SODIUM 1 GM VIAL ONE (09:19)
[2019-10-05] MEDS ORDERED: DEXTROSE 5%-WATER - 50 ML IVPB ONE (09:19)
[2019-10-05] MEDS ORDERED: PT OWN MED DRAWER 7, Y5N ONE (09:19)
[2019-10-05] MEDS: CEFTRIAXONE 1 GM in DEXTROSE 5%-WATER - 50 ML IVPB SCH (09:26)
[2019-10-05] MEDS: LISINOPRIL 5 MG TABLET (FP) PO SCH (09:28)
[2019-10-05] MEDS: APIXABAN 5 MG TABLET PO SCH ×2 (09:29→21:13)
[2019-10-05] MEDS: PANTOPRAZOLE 40 MG TABLET PO SCH (09:29)
[2019-10-05] MEDS: predniSONE 20 MG TABLET (UD) PO SCH (09:29)
[2019-10-05] MEDS: BRIMONIDINE TARTRATE 0.2% OPHTHALMIC 5 ML BOTTLE OS SCH ×2 (09:30→21:05)
[2019-10-05] MEDS: TIMOLOL 0.5% OPHTHALMIC SOL 5 ML BOTTLE OS SCH ×2 (09:30→21:14)
--- NOTE | 2019-10-05 11:10 | PN ---
Progress Note, Physician - Current Medication List Current Medications: Active Medications Acetaminophen (Tylenol -) 650 mg PO Q4H PRN PRN Reason: FEVER Albuterol/Ipratropium (Duoneb -) 1 amp NEB RQID [facility] Last Admin: 10/05/19 07:20 Dose: 1 amp Apixaban (Eliquis -) 5 mg PO BID [facility] Last Admin: 10/05/19 09:29 Dose: 5 mg Atorvastatin Calcium (Lipitor -) 20 mg PO HS [facility] Last Admin: 10/04/19 22:48 Dose: 20 mg Brimonidine Tartrate (Alphagan 0.2% -) 1 drop OS BID [facility] Last Admin: 10/05/19 09:30 Dose: 1 drop Dorzolamide HCl (Trusopt 2%) 1 drop OU TID [facility] Last Admin: 10/05/19 06:11 Dose: 1 drop Ceftriaxone Sodium 1 gm/ (Dextrose) 50 mls @ 100 mls/hr IVPB DAILY [facility]; Protocol Last Admin: 10/05/19 09:26 Dose: 100 mls/hr Latanoprost (Xalatan 0.005% Eye Drops -) 1 drop OS [facility] Last Admin: 10/04/19 22:50 Dose: 1 drop Lisinopril (Prinivil) 2.5 mg PO DAILY [facility] Last Admin: 10/05/19 09:28 Dose: 2.5 mg Pantoprazole Sodium (Protonix -) 40 mg PO DAILY [facility] Last Admin: 10/05/19 09:29 Dose: 40 mg Prednisone (Deltasone -) 20 mg PO DAILY [facility] Last Admin: 10/05/19 09:29 Dose: 20 mg Timolol Maleate (Timoptic 0.5%) 1 drop OS BID [facility] Last Admin: 10/05/19 09:30 Dose: 1 drop - Objective Vital Signs: Vital Signs Temperature 98.6 F 10/05/19 10:00 Pulse Rate 71 10/05/19 10:00 Respiratory Rate 18 10/05/19 10:00 Blood Pressure 158/78 10/05/19 10:00 O2 Sat by Pulse Oximetry (%) 98 10/04/19 21:00 Cardiovascular: Yes: S1, S2 Respiratory: Yes: Rhonchi Gastrointestinal: Yes: Normal Bowel Sounds, Soft Labs: CBC, BMP 10/02/19 08:47 10/04/19 07:50 INR, PTT INR 2.04 (0.83-1.09) H 10/01/19 10:40 Assessment/Plan - Problems (1) CHF (congestive heart failure) Assessment/Plan: bnp 2500 on admit echo not done cardiology consult I & O daily weights 2gm/2L restrictions Problems reviewed: Yes Code(s): I50.9 - HEART FAILURE, UNSPECIFIED Qualifiers: Heart failure type: unspecified (2) COPD exacerbation Assessment/Plan: pulm following ct chest NOTED--NO INFILTRATES--PULM NODULE-ANEURYSMAL DILATION 4.3 converted to PO prednisone IV ceftriaxone X 24 HRS neb tx outpatient f/u for PFTs off oxygen Problems reviewed: Yes Code(s): J44.1 - CHRONIC OBSTRUCTIVE PULMONARY DISEASE W (ACUTE) EXACERBATION (3) CAP (community acquired pneumonia) Assessment/Plan: pulm following ID following completed azithro, still on IV ceftriaxone afebrile cont nebtx Problems reviewed: Yes Code(s): J18.9 - PNEUMONIA, UNSPECIFIED ORGANISM Qualifiers: Laterality: unspecified laterality Qualified Code(s): J18.9 - Pneumonia, unspecified organism (4) Atrial fibrillation Assessment/Plan: cont eliquis rate controlled Problems reviewed: Yes Code(s): I48.91 - UNSPECIFIED ATRIAL FIBRILLATION Qualifiers: Atrial fibrillation type: unspecified chronic Qualified Code(s): I48.20 - Chronic atrial fibrillation, unspecified; I48.2 - Chronic atrial fibrillation (5) HTN (hypertension) Assessment/Plan: cont lisinopril sodium restriction Problems reviewed: Yes Code(s): I10 - ESSENTIAL (PRIMARY) HYPERTENSION Qualifiers: Hypertension type: essential hypertension Qualified Code(s): I10 - Essential (primary) hypertension (6) Hyperlipidemia Assessment/Plan: cont atorvastatin Problems reviewed: Yes Code(s): E78.5 - HYPERLIPIDEMIA, UNSPECIFIED Qualifiers: Hyperlipidemia type: mixed hyperlipidemia Qualified Code(s): E78.2 - Mixed hyperlipidemia
--- NOTE | 2019-10-05 11:28 | PN ---
Progress Note (short form) - Note Progress Note: Feels overall better. Less SOB. Some yellow sputum. CT: not officially read: bilateral scattered infiltrates Intake & Output 10/02/19 10/03/19 10/04/19 10/05/19 23:59 23:59 23:59 23:59 Intake Total 900 550 940 50 Output Total 2 Balance 898 550 940 50 Weight 176 lb 12.8 oz 174 lb 4.8 oz Last Vital Signs Temp Pulse Resp BP Pulse Ox 98.6 F 71 18 158/78 98 10/05/19 10:00 10/05/19 10:00 10/05/19 10:00 10/05/19 10:00 10/04/19 21:00 Active Medications Acetaminophen (Tylenol -) 650 mg PO Q4H PRN PRN Reason: FEVER Albuterol/Ipratropium (Duoneb -) 1 amp NEB RQID [facility] Last Admin: 10/05/19 07:20 Dose: 1 amp Apixaban (Eliquis -) 5 mg PO BID [facility] Last Admin: 10/05/19 09:29 Dose: 5 mg Atorvastatin Calcium (Lipitor -) 20 mg PO HS [facility] Last Admin: 10/04/19 22:48 Dose: 20 mg Brimonidine Tartrate (Alphagan 0.2% -) 1 drop OS BID [facility] Last Admin: 10/05/19 09:30 Dose: 1 drop Dorzolamide HCl (Trusopt 2%) 1 drop OU TID [facility] Last Admin: 10/05/19 06:11 Dose: 1 drop Ceftriaxone Sodium 1 gm/ (Dextrose) 50 mls @ 100 mls/hr IVPB DAILY [facility]; Protocol Last Admin: 10/05/19 09:26 Dose: 100 mls/hr Latanoprost (Xalatan 0.005% Eye Drops -) 1 drop OS [facility] Last Admin: 10/04/19 22:50 Dose: 1 drop Lisinopril (Prinivil) 2.5 mg PO DAILY [facility] Last Admin: 10/05/19 09:28 Dose: 2.5 mg Pantoprazole Sodium (Protonix -) 40 mg PO DAILY [facility] Last Admin: 10/05/19 09:29 Dose: 40 mg Prednisone (Deltasone -) 20 mg PO DAILY [facility] Last Admin: 10/05/19 09:29 Dose: 20 mg Timolol Maleate (Timoptic 0.5%) 1 drop OS BID [facility] Last Admin: 10/05/19 09:30 Dose: 1 drop Constitutional: Yes: Well Nourished, Calm Eyes: Yes: WNL HENT: Yes: WNL Neck: Yes: WNL Cardiovascular: Yes: Pulse Irregular, S1, S2 Respiratory: Yes: Diminished Gastrointestinal: Yes: Normal Bowel Sounds, Soft Extremities: Yes: WNL Edema: No Labs: Problem List - Problems (1) COPD exacerbation Code(s): J44.1 - CHRONIC OBSTRUCTIVE PULMONARY DISEASE W (ACUTE) EXACERBATION (2) Cough Code(s): R05 - COUGH (3) Atrial fibrillation Code(s): I48.91 - UNSPECIFIED ATRIAL FIBRILLATION Qualifiers: (4) HTN (hypertension) Code(s): I10 - ESSENTIAL (PRIMARY) HYPERTENSION Qualifiers: (5) Hyperlipidemia Code(s): E78.5 - HYPERLIPIDEMIA, UNSPECIFIED IMP COPD EXACERBATION IMPROVED CHF/AF/ON AC HLD HTN PLAN ABX CAN CHANGE TO CEFTIN PREDNISONE INHALED BROCHODILATORS O2 NEEDED PFTS OUTPATIENT RADIOLOGY CONTACTED FOR CT CHEST TO BE OFFICIALLY READ THERE IS NO PULMONARY CONTRAINDICATION FOR DC HOME DR RANGEL
[2019-10-05] MEDS ORDERED: LISINOPRIL 5 MG TABLET (FP) PO ONE (18:08)
[2019-10-05] MEDS: LATANOPROST 0.005% OPHTH SOLN 2.5ML BOTTLE OS SCH (21:10)
[2019-10-05] MEDS: ATORVASTATIN CA 20 MG TABLET (FP) PO SCH (21:13)
[2019-10-06] MEDS: DORZOLAMIDE 2% HCL OPHTHALMIC SOLUTION 10 ML BOTTLE OU SCH ×3 (05:36→21:35)
[2019-10-06] MEDS: ALBUTEROL SO4 2.5/IPRATROPIUM 0.5 INH SOL 3 ML VIAL.NEB. NEB SCH ×4 (08:50→21:15)
[2019-10-06] MEDS ORDERED: cefTRIAXone SODIUM 1 GM VIAL ONE (09:56)
[2019-10-06] MEDS ORDERED: DEXTROSE 5%-WATER - 50 ML IVPB ONE (09:56)
[2019-10-06] MEDS ORDERED: LISINOPRIL 5 MG TABLET (FP) PO SCH (10:00)
[2019-10-06] MEDS: PANTOPRAZOLE 40 MG TABLET PO SCH (10:13)
[2019-10-06] MEDS: predniSONE 20 MG TABLET (UD) PO SCH (10:13)
[2019-10-06] MEDS: APIXABAN 5 MG TABLET PO SCH ×2 (10:13→21:33)
[2019-10-06] MEDS: BRIMONIDINE TARTRATE 0.2% OPHTHALMIC 5 ML BOTTLE OS SCH ×2 (10:15→21:34)
[2019-10-06] MEDS: CEFTRIAXONE 1 GM in DEXTROSE 5%-WATER - 50 ML IVPB SCH (10:24)
[2019-10-06] MEDS: TIMOLOL 0.5% OPHTHALMIC SOL 5 ML BOTTLE OS SCH ×2 (10:24→21:34)
--- NOTE | 2019-10-06 10:40 | PN ---
Progress Note, Physician - Current Medication List Current Medications: Active Medications Acetaminophen (Tylenol -) 650 mg PO Q4H PRN PRN Reason: FEVER Albuterol/Ipratropium (Duoneb -) 1 amp NEB RQID [facility] Last Admin: 10/06/19 08:50 Dose: 1 amp Apixaban (Eliquis -) 5 mg PO BID [facility] Last Admin: 10/06/19 10:13 Dose: 5 mg Atorvastatin Calcium (Lipitor -) 20 mg PO HS [facility] Last Admin: 10/05/19 21:13 Dose: 20 mg Brimonidine Tartrate (Alphagan 0.2% -) 1 drop OS BID [facility] Last Admin: 10/06/19 10:15 Dose: 1 drop Dorzolamide HCl (Trusopt 2%) 1 drop OU TID [facility] Last Admin: 10/06/19 05:36 Dose: 1 drop Ceftriaxone Sodium 1 gm/ (Dextrose) 50 mls @ 100 mls/hr IVPB DAILY [facility]; Protocol Last Admin: 10/06/19 10:24 Dose: 100 mls/hr Latanoprost (Xalatan 0.005% Eye Drops -) 1 drop OS [facility] Last Admin: 10/05/19 21:10 Dose: 1 drop Lisinopril (Prinivil) 5 mg PO DAILY [facility] Last Admin: 10/06/19 10:13 Dose: 5 mg Pantoprazole Sodium (Protonix -) 40 mg PO DAILY [facility] Last Admin: 10/06/19 10:13 Dose: 40 mg Prednisone (Deltasone -) 20 mg PO DAILY [facility] Last Admin: 10/06/19 10:13 Dose: 20 mg Timolol Maleate (Timoptic 0.5%) 1 drop OS BID [facility] Last Admin: 10/06/19 10:24 Dose: 1 drop - Objective Vital Signs: Vital Signs Temperature 98.4 F 10/06/19 05:33 Pulse Rate 59 L 10/05/19 14:41 Respiratory Rate 20 10/06/19 05:33 Blood Pressure 171/85 H 10/06/19 05:33 O2 Sat by Pulse Oximetry (%) 97 10/05/19 20:41 Cardiovascular: Yes: S1, S2 Respiratory: Yes: Regular, Rhonchi Gastrointestinal: Yes: Normal Bowel Sounds, Soft Labs: CBC, BMP 10/02/19 08:47 10/04/19 07:50 INR, PTT INR 2.04 (0.83-1.09) H 10/01/19 10:40 Assessment/Plan - Problems (1) CHF (congestive heart failure) Assessment/Plan: bnp 2500 on admit echo not done cardiology consult I & O daily weights 2gm/2L restrictions Problems reviewed: Yes Code(s): I50.9 - HEART FAILURE, UNSPECIFIED Qualifiers: Heart failure type: unspecified (2) COPD exacerbation Assessment/Plan: pulm following ct chest NOTED--NO INFILTRATES--PULM NODULE-ANEURYSMAL DILATION 4.3 converted to PO prednisone IV ceftriaxone X 24 HRS neb tx outpatient f/u for PFTs off oxygen Problems reviewed: Yes Code(s): J44.1 - CHRONIC OBSTRUCTIVE PULMONARY DISEASE W (ACUTE) EXACERBATION (3) CAP (community acquired pneumonia) Assessment/Plan: pulm following ID following completed azithro, still on IV ceftriaxone afebrile cont nebtx Problems reviewed: Yes Code(s): J18.9 - PNEUMONIA, UNSPECIFIED ORGANISM Qualifiers: Laterality: unspecified laterality Qualified Code(s): J18.9 - Pneumonia, unspecified organism (4) Atrial fibrillation Assessment/Plan: cont eliquis rate controlled Problems reviewed: Yes Code(s): I48.91 - UNSPECIFIED ATRIAL FIBRILLATION Qualifiers: Atrial fibrillation type: unspecified chronic Qualified Code(s): I48.20 - Chronic atrial fibrillation, unspecified; I48.2 - Chronic atrial fibrillation (5) HTN (hypertension) Assessment/Plan: cont lisinopril-increase to 10 sodium restriction Problems reviewed: Yes Code(s): I10 - ESSENTIAL (PRIMARY) HYPERTENSION Qualifiers: Hypertension type: essential hypertension Qualified Code(s): I10 - Essential (primary) hypertension (6) Hyperlipidemia Assessment/Plan: cont atorvastatin Problems reviewed: Yes Code(s): E78.5 - HYPERLIPIDEMIA, UNSPECIFIED Qualifiers: Hyperlipidemia type: mixed hyperlipidemia Qualified Code(s): E78.2 - Mixed hyperlipidemia
--- NOTE | 2019-10-06 11:05 | PN ---
Progress Note (short form) - Note Progress Note: Feels overall better. Less SOB. Still with some yellow sputum. CT: 0.5 x 0.3 mm RML: not seen on previous CT due to infiltrate / mildly enlarged medistinal adenopathy Intake & Output 10/03/19 10/04/19 10/05/19 10/06/19 23:59 23:59 23:59 23:59 Intake Total 550 940 810 100 Balance 550 940 810 100 Weight 176 lb 12.8 oz 174 lb 4.8 oz 181 lb Last Vital Signs Temp Pulse Resp BP Pulse Ox 98.4 F 59 L 20 171/85 H 97 10/06/19 05:33 10/05/19 14:41 10/06/19 05:33 10/06/19 05:33 10/05/19 20:41 Active Medications Acetaminophen (Tylenol -) 650 mg PO Q4H PRN PRN Reason: FEVER Albuterol/Ipratropium (Duoneb -) 1 amp NEB RQID [facility] Last Admin: 10/06/19 08:50 Dose: 1 amp Apixaban (Eliquis -) 5 mg PO BID [facility] Last Admin: 10/06/19 10:13 Dose: 5 mg Atorvastatin Calcium (Lipitor -) 20 mg PO HS [facility] Last Admin: 10/05/19 21:13 Dose: 20 mg Brimonidine Tartrate (Alphagan 0.2% -) 1 drop OS BID [facility] Last Admin: 10/06/19 10:15 Dose: 1 drop Dorzolamide HCl (Trusopt 2%) 1 drop OU TID [facility] Last Admin: 10/06/19 05:36 Dose: 1 drop Ceftriaxone Sodium 1 gm/ (Dextrose) 50 mls @ 100 mls/hr IVPB DAILY [facility]; Protocol Last Admin: 10/06/19 10:24 Dose: 100 mls/hr Latanoprost (Xalatan 0.005% Eye Drops -) 1 drop OS HS [facility] Last Admin: 10/05/19 21:10 Dose: 1 drop Lisinopril (Prinivil) 5 mg PO DAILY [facility] Last Admin: 10/06/19 10:13 Dose: 5 mg Pantoprazole Sodium (Protonix -) 40 mg PO DAILY [facility] Last Admin: 10/06/19 10:13 Dose: 40 mg Prednisone (Deltasone -) 20 mg PO DAILY [facility] Last Admin: 10/06/19 10:13 Dose: 20 mg Timolol Maleate (Timoptic 0.5%) 1 drop OS BID [facility] Last Admin: 10/06/19 10:24 Dose: 1 drop Constitutional: Yes: Well Nourished, Calm Eyes: Yes: WNL HENT: Yes: WNL Neck: Yes: WNL Cardiovascular: Yes: Pulse Irregular, S1, S2 Respiratory: Yes: Diminished Gastrointestinal: Yes: Normal Bowel Sounds, Soft Extremities: Yes: WNL Edema: No Labs: Problem List - Problems (1) COPD exacerbation Code(s): J44.1 - CHRONIC OBSTRUCTIVE PULMONARY DISEASE W (ACUTE) EXACERBATION (2) Cough Code(s): R05 - COUGH (3) Atrial fibrillation Code(s): I48.91 - UNSPECIFIED ATRIAL FIBRILLATION Qualifiers: (4) HTN (hypertension) Code(s): I10 - ESSENTIAL (PRIMARY) HYPERTENSION Qualifiers: (5) Hyperlipidemia Code(s): E78.5 - HYPERLIPIDEMIA, UNSPECIFIED IMP COPD EXACERBATION IMPROVED CHF/AF/ON AC HLD HTN PLAN ABX CAN CHANGE TO CEFTIN PREDNISONE INHALED BROCHODILATORS O2 NEEDED PFTS OUTPATIENT OUTPATIENT CT FOLLOW UP IN 3 TO 6 MONTHS THERE IS NO PULMONARY CONTRAINDICATION FOR DC HOME DR RANGEL
--- NOTE | 2019-10-06 11:27 | DS ---
Physical Examination Vital Signs: Vital Signs Temperature 98.4 F 10/06/19 05:33 Pulse Rate 59 L 10/05/19 14:41 Respiratory Rate 20 10/06/19 05:33 Blood Pressure 171/85 H 10/06/19 05:33 O2 Sat by Pulse Oximetry (%) 97 10/05/19 20:41 Labs: CBC, BMP 10/02/19 08:47 10/04/19 07:50 Discharge Summary Problems reviewed: Yes Reason For Visit: ACUTE EXACERBATION OF COPD Current Active Problems CHF (congestive heart failure) (Acute) COPD exacerbation (Acute) Cough (Acute) Fever (Acute) Condition: Improved - Instructions Referrals: Malena Chacko [Primary Care Provider] - 1 Week Disposition: HOME - Home Medications Comprehensive Discharge Medication List: Ambulatory Orders Apixaban [Eliquis -] 5 mg PO BID #40 tablet 05/22/16 Brimonidine Tartrate/Timolol [Combigan 0.2%-0.5% Eye Drops] 1 drop OS BID Pantoprazole Sodium [Protonix -] 40 mg PO DAILY 10/26/16 Loratadine 10 mg PO DAILY 08/21/19 Brinzolamide [Azopt (Non-Formulary)] 1 drop OU TID 10/01/19 Budesonide/Formeterol Fumarate [SYMBICORT 160/4.5mcg -] 2 puff IH DAILY Fluticasone Prop 0.05% Nasal [Flonase -] 1 spray NS DAILY 10/01/19 Latanoprost 1 drop OS HS 10/01/19 Atorvastatin Calcium [Lipitor] 20 mg PO HS 10/02/19 Acetaminophen [Tylenol .Regular Strength -] 650 mg PO Q4H PRN tablet 10/06/19 Cefuroxime Axetil [Ceftin -] 250 mg PO BID #14 tablet 10/06/19 Lisinopril [Prinivil] 10 mg PO DAILY #60 tablet 10/06/19 predniSONE [Deltasone -] 10 mg PO DAILY #30 tablet 10/06/19
[2019-10-06] MEDS: ATORVASTATIN CA 20 MG TABLET (FP) PO SCH (21:33)
[2019-10-06] MEDS: LATANOPROST 0.005% OPHTH SOLN 2.5ML BOTTLE OS SCH (21:34)
[2019-10-07] MEDS: DORZOLAMIDE 2% HCL OPHTHALMIC SOLUTION 10 ML BOTTLE OU SCH ×2 (06:20→13:51)
[2019-10-07] MEDS: ALBUTEROL SO4 2.5/IPRATROPIUM 0.5 INH SOL 3 ML VIAL.NEB. NEB SCH ×2 (07:25→11:15)
[2019-10-07] MEDS ORDERED: PT OWN MED DRAWER 7, Y5N ONE (09:15)
[2019-10-07] MEDS ORDERED: cefTRIAXone SODIUM 1 GM VIAL ONE (09:16)
[2019-10-07] MEDS ORDERED: DEXTROSE 5%-WATER - 50 ML IVPB ONE (09:16)
[2019-10-07] MEDS: PANTOPRAZOLE 40 MG TABLET PO SCH (09:18)
[2019-10-07] MEDS: predniSONE 20 MG TABLET (UD) PO SCH (09:19)
[2019-10-07] MEDS: CEFTRIAXONE 1 GM in DEXTROSE 5%-WATER - 50 ML IVPB SCH (09:19)
[2019-10-07] MEDS: APIXABAN 5 MG TABLET PO SCH (09:19)
[2019-10-07] MEDS: BRIMONIDINE TARTRATE 0.2% OPHTHALMIC 5 ML BOTTLE OS SCH (09:22)
[2019-10-07] MEDS: TIMOLOL 0.5% OPHTHALMIC SOL 5 ML BOTTLE OS SCH (09:22)
--- NOTE | 2019-10-07 09:25 | PN ---
Progress Note (short form) - Note Progress Note: Feels overall better. Less SOB. Minimal cough with some yellow sputum. CT: 0.5 x 0.3 mm RML: not seen on previous CT due to infiltrate / mildly enlarged medistinal adenopathy Intake & Output 10/04/19 10/05/19 10/06/19 10/07/19 23:59 23:59 23:59 23:59 Intake Total 522 295 0445 Balance 785 529 1392 Weight 176 lb 12.8 oz 174 lb 4.8 oz 181 lb 180 lb Last Vital Signs Temp Pulse Resp BP Pulse Ox 97.8 F 67 20 156/88 97 10/07/19 05:31 10/07/19 05:31 10/07/19 05:31 10/07/19 05:31 10/05/19 20:41 Active Medications Acetaminophen (Tylenol -) 650 mg PO Q4H PRN PRN Reason: FEVER Albuterol/Ipratropium (Duoneb -) 1 amp NEB RQID [facility] Last Admin: 10/07/19 07:25 Dose: 1 amp Apixaban (Eliquis -) 5 mg PO BID [facility] Last Admin: 10/07/19 09:19 Dose: 5 mg Atorvastatin Calcium (Lipitor -) 20 mg PO HS [facility] Last Admin: 10/06/19 21:33 Dose: 20 mg Brimonidine Tartrate (Alphagan 0.2% -) 1 drop OS BID [facility] Last Admin: 10/07/19 09:22 Dose: 1 drop Dorzolamide HCl (Trusopt 2%) 1 drop OU TID [facility] Last Admin: 10/07/19 06:20 Dose: 1 drop Ceftriaxone Sodium 1 gm/ (Dextrose) 50 mls @ 100 mls/hr IVPB DAILY [facility]; Protocol Last Admin: 10/07/19 09:19 Dose: 100 mls/hr Latanoprost (Xalatan 0.005% Eye Drops -) 1 drop OS HS [facility] Last Admin: 10/06/19 21:34 Dose: 1 drop Lisinopril (Prinivil) 10 mg PO DAILY [facility] Last Admin: 10/07/19 09:18 Dose: 10 mg Pantoprazole Sodium (Protonix -) 40 mg PO DAILY [facility] Last Admin: 10/07/19 09:18 Dose: 40 mg Prednisone (Deltasone -) 20 mg PO DAILY [facility] Last Admin: 10/07/19 09:19 Dose: 20 mg Timolol Maleate (Timoptic 0.5%) 1 drop OS BID [facility] Last Admin: 10/07/19 09:22 Dose: 1 drop Constitutional: Yes: Well Nourished, Calm Eyes: Yes: WNL HENT: Yes: WNL Neck: Yes: WNL Cardiovascular: Yes: Pulse Irregular, S1, S2 Respiratory: Yes: Diminished Gastrointestinal: Yes: Normal Bowel Sounds, Soft Extremities: Yes: WNL Edema: No Labs: Problem List - Problems (1) COPD exacerbation Code(s): J44.1 - CHRONIC OBSTRUCTIVE PULMONARY DISEASE W (ACUTE) EXACERBATION (2) Cough Code(s): R05 - COUGH (3) Atrial fibrillation Code(s): I48.91 - UNSPECIFIED ATRIAL FIBRILLATION Qualifiers: (4) HTN (hypertension) Code(s): I10 - ESSENTIAL (PRIMARY) HYPERTENSION Qualifiers: (5) Hyperlipidemia Code(s): E78.5 - HYPERLIPIDEMIA, UNSPECIFIED IMP COPD EXACERBATION IMPROVED CHF/AF/ON AC HLD HTN PLAN ABX CAN CHANGE TO CEFTIN PREDNISONE INHALED BROCHODILATORS O2 NEEDED PFTS OUTPATIENT OUTPATIENT CT FOLLOW UP IN 3 TO 6 MONTHS THERE IS NO PULMONARY CONTRAINDICATION FOR DC HOME DR RANGEL
[2019-10-07] MEDS ORDERED: LISINOPRIL 5 MG TABLET (FP) PO SCH (10:00)
[2019-10-07 11:33] VITALS: BP 150/80; PULSE 64; TEMP 97.6
--- NOTE | 2019-10-07 11:47 | ECHO ---
Name: DAISY AGGARWAL Exam:Adult Echocardiogram Study Date: 10/07/2019 10:09 AM Age: 89 yrs Reason For Study: Arrhythmia Height: 61 in Weight: 176 lb BSA: 1.8 m2 MMode/2D Measurements & Calculations IVSd: 1.9 cm Ao root diam: 3.6 cm LVIDd: 5.2 cm LA dimension: 4.6 cm LVIDs: 3.5 cm ACS: 1.6 cm LVPWd: 0.89 cm IVSs: 1.9 cm LVPWs: 1.7 cm EDV(Teich): 129.7 ml ESV(Von): 49.8 ml LVOT diam: 1.8 cm RV S Quintin: 14.5 cm/sec Doppler Measurements & Calculations MV E max quintin: 88.8 cm/sec Ao V2 max: 114.8 cm/sec MV A max quintin: 44.9 cm/sec Ao max P.3 mmHg MV E/A: 2.0 Ao V2 mean: 87.4 cm/sec MV dec time: 0.14 sec Ao mean P.2 mmHg Ao V2 VTI: 25.2 cm KADIE(V,D): 1.9 cm2 LV V1 max P.9 mmHg MR max quintin: 320.2 cm/sec LV V1 max: 84.9 cm/sec MR max P.6 mmHg TR max quintin: 254.0 cm/sec PA V2 max: 56.3 cm/sec TR max P.0 mmHg PA max P.3 mmHg PI end-d quintin: 96.4 cm/sec Med Peak E' Quintin: 4.4 cm/sec Med E/e': 20.3 Lat Peak E' Quintin: 7.9 cm/sec Lat E/e': 11.3 Procedure Study Quality: Technically suboptimal. Left Ventricle The left ventricle is grossly normal size. There is mild concentric left ventricular hypertrophy. The left ventricular ejection fraction is normal. Ejection Fraction = 55%. Right Ventricle Borderline right ventricular enlargement. The right ventricular systolic function is grossly normal. Atria The left atrium is severely dilated. The right atrium is severely dilated. Mitral Valve There is mild mitral valve thickening. There is trace to mild mitral regurgitation. Tricuspid Valve The tricuspid valve is not well visualized, but is grossly normal. There is mild tricuspid regurgitat ion. Aortic Valve There is mild to moderate aortic sclerosis.;. No hemodynamically significant valvular aortic stenosis . Pulmonic Valve The pulmonic valve is not well visualized. Great Vessels The aortic root is not well visualized. Pericardium/Pleura There is no pericardial effusion. Interpretation Summary LV: Normal size, mild LVH,normal systolic function, EF 55% RV: Borderline dilated Severely dilated biatria Trace mild MR Mild TR, normal RVSP Sclerotic aortic valve. Biju Bryant 10/07/2019 11:46 AM
--- NOTE | 2019-10-07 15:02 | DS ---
Physical Examination Vital Signs: Vital Signs Temperature 97.6 F 10/07/19 09:00 Pulse Rate 64 10/07/19 09:00 Respiratory Rate 20 10/07/19 09:00 Blood Pressure 150/80 10/07/19 09:00 O2 Sat by Pulse Oximetry (%) 97 10/05/19 20:41 Constitutional: Yes: Well Nourished, No Distress HENT: Yes: WNL, Atraumatic, Normocephalic Neck: Yes: Supple Cardiovascular: Yes: WNL Respiratory: Yes: WNL, CTA Bilaterally Gastrointestinal: Yes: Normal Bowel Sounds Neurological: Yes: WNL, Alert, Oriented Psychiatric: Yes: Alert, Oriented Labs: CBC, BMP 10/02/19 08:47 10/04/19 07:50 Discharge Summary Problems reviewed: Yes Reason For Visit: ACUTE EXACERBATION OF COPD Current Active Problems CHF (congestive heart failure) (Acute) COPD exacerbation (Acute) Cough (Acute) Fever (Acute) Hospital Course: Patient was seen and evaluated by pulmonology, given IV steroids, IV antbx, changed to oral prednisone, oral antbx. he had echo while hospitalized, with EF 55%. Chest ct was done, he was weaned off oxygen. he is stable for dc. Health Concerns: COPD, CHF, needs follow up with PCP Plan of Treatment: chad calderón IV MP, neb tx Condition: Improved - Instructions Referrals: Malena Chacko [Primary Care Provider] - 1 Week Disposition: HOME - Home Medications Comprehensive Discharge Medication List: Ambulatory Orders Apixaban [Eliquis -] 5 mg PO BID #40 tablet 05/22/16 Brimonidine Tartrate/Timolol [Combigan 0.2%-0.5% Eye Drops] 1 drop OS BID Pantoprazole Sodium [Protonix -] 40 mg PO DAILY 10/26/16 Loratadine 10 mg PO DAILY 08/21/19 Brinzolamide [Azopt (Non-Formulary)] 1 drop OU TID 10/01/19 Budesonide/Formeterol Fumarate [SYMBICORT 160/4.5mcg -] 2 puff IH DAILY Fluticasone Prop 0.05% Nasal [Flonase -] 1 spray NS DAILY 10/01/19 Latanoprost 1 drop OS HS 10/01/19 Atorvastatin Calcium [Lipitor] 20 mg PO HS 10/02/19 Acetaminophen [Tylenol .Regular Strength -] 650 mg PO Q4H PRN tablet 10/06/19 Cefuroxime Axetil [Ceftin -] 250 mg PO BID #14 tablet 10/06/19 Lisinopril [Prinivil] 10 mg PO DAILY #60 tablet 10/06/19 predniSONE [Deltasone -] 10 mg PO DAILY #30 tablet 10/06/19 Prescription Drug Monitoring Program (I-STOP) results: I-STOP not reviewed
== END 2019-10-07 15:09 | disposition home or self-care (01) | DRG 191 ==
LOC: JER 09:38 → JERBED 13:40 → J5S 21:13 → J6S 10-05 10:28
PROVIDERS: ADMIT Family Medicine; ATTEND Family Medicine
DX: J44.1 Chronic obstructive pulmonary disease with (acute) exacerbation (principal); I48.20 Chronic atrial fibrillation, unspecified; J40 Bronchitis, not specified as acute or chronic; J06.9 Acute upper respiratory infection, unspecified; R59.0 Localized enlarged lymph nodes; R91.1 Solitary pulmonary nodule; I10 Essential (primary) hypertension; E78.5 Hyperlipidemia, unspecified; R42 Dizziness and giddiness; K21.9 Gastro-esophageal reflux disease without esophagitis; E78.00 Pure hypercholesterolemia, unspecified
CPT/HCPCS: 36415; 71045-TC-FY; 71250-TC; 80048; 80053; 81003; 82803; 83605; 83735; 83880; 84443; 84484; 85025; 85610; 85730; 87040; 87086; 87804; 87899; 93005; 93010; 93306-TC; 94640; 99285-25